=== PATIENT | male | born 1960 | race Caucasian/White ===

== ENCOUNTER → 2023-07-07 06:18 | Outpatient (REF) | payer OTHER, SELFPAY ==
[2023-07-07 07:20] LABS: % Basophils 0.6 % (0-2); % Eosinophils 2.6 % (0-6); % Immature Granulocytes 0.3 % (0-0.5); % Lymphocytes 30.2 % (20.5-51.1); % Neutrophils 59.3 % (42.2-75.2); Absolute Eosinophils 0.2 10^3/uL (0-0.7); Absolute Lymphocytes 2.2 10^3/uL (1.2-3.4); Absolute Monocytes 0.5 10^3/uL (0.1-0.6); Absolute Neutrophils 4.3 10^3/uL (1.4-6.5); Hematocrit 42.5 % (39.0-52.0); Hemoglobin 14.5 g/dL (13.0-18.0); Mean Corp Hgb Conc. 34.1 g/dL (33.0-37.0); Nucleated Red Blood Cells % 0 % (-); Platelet Count 325 10^3/uL (130-400); Red Cell Dist. Width 12.8 % (11.5-14.5); White Blood Cell Count 7.2 10^3/uL (4.8-10.8)
[2023-07-07 08:02] LABS: Blood Urea Nitrogen 22 mg/dl (9-20); Calcium 9.6 mg/dl (8.4-10.2); Carbon Dioxide 27 mmol/L (22-30); Chloride 102 mmol/L (98-107); Glucose 103 mg/dl (70-99); Potassium 4.7 mmol/L (3.5-5.1); Sodium 139 mmol/L (135-145); eGFR > 60.00
== END ==
LOC: RCS 06:18
PROVIDERS: ATTENDING PHYSICIAN Student in an Organized Health Care Education/Training Program; FAMILY PHYSICIAN Family Medicine
DX: M76.60 Achilles tendinitis, unspecified leg (principal)
CPT/HCPCS: 36415; 80048; 85025; 93005

== ENCOUNTER 2023-07-16 12:29 | Inpatient (IN) | payer OTHER, SELFPAY ==
[2023-07-14] VITALS (7 sets, daily range): BP systolic 142–178; BP diastolic 88–112; BMI 30.5; BMI 30.2
--- NOTE | 2023-07-14 15:11 | ED.GENMED ---
History of Present Illness
General
Chief Complaint: Fainting Sensation
Source: patient and family (son who is at the bedside)
Exam Limitations: none
Time Seen by Provider: 07/14/23 15:12
Nursing documentation reviewed up to this point in time: agreed with
Travel History
Have you had any contact with someone who has COVID-19?: No
Do you have any symptoms of coronavirus? Fever > 100 degrees, chills, cough, shortness of breath, sore throat, loss of taste or smell, muscle aches, or headache?: No
History of Present Illness
History of Present Illness:
The patient is a pleasant 62 yr old man who was sent directly from a surgi center due to low oxygen levels post-R achilles tendon repair under general anesthesia and intubation. According to Dr. Vel Levy, who I spoke to over the phone, the
patient intermittently dropped his pulse ox postsurgery and complained of chest tightness. The patient reports he feels completely better at this time. He denies any chest tightness or chest pain. He denies shortness of breath. He reports that
he generally feels lightheaded and nearly passes out anytime he sees needles. Patient denies any postoperative pain in his right ankle area. He denies a history of PE and DVT. He denies a history of coronary artery disease. Additionally,
postsurgically, he did cough up pink like sputum. Patient denies being on any blood thinners.
Past History
Past History
ED Past Medical History: None
ED Past Surgical History: Orthopedic and Tonsilectomy
Social History
Tobacco: Former smoker
Alcohol: Occasional
Drug: None
Personal:
Living: with family
Employment: Employed
Family History
Family History: Other
Review of Systems
Review of Systems
Allergies reviewed?: Yes
Other source history: family
All Other Systems: ROS reviewed and negative except as documented in HPI and ROS
Constitutional: Reports no symptoms
EENT: Reports no symptoms
Respiratory: Reports cough
Cardiac: Reports chest pain
ABD/GI: Reports no symptoms
: Reports no symptoms
Musculoskeletal: Reports no symptoms
Skin: Reports no symptoms
Neurological: Reports no symptoms
Endocrine: Reports no symptoms
Hematologic/Lymphatic: Reports no symptoms
Psychiatric: Reports no symptoms
Phy Exam
Physical Exam
Physical Exam:
Physical Exam
General: no apparent distress, not acutely ill. Patient appears well and comfortable. Is smiling and conversational
Neck: supple. no meningeal signs. normal posterior pharynx
Heart: s1/s2 regular rate and rhythm, no murmur. equal radial pulses. When patient takes a deep breath, and there is no reproducible chest pain
Lungs: no acute respiratory distress. clear bilaterally
Abdomen: normal bowel sounds. not tender. no CVAT
Neuro: alert and oriented. no focal neurological deficits
Skin: no rash
Psychiatric: well kept. interactive and cooperative
Extremities: Patient has posterior right short leg splint on right lower extremity. Patient has good sensation in bilateral feet.
Course
Orders/Labs/Results
Orders:
Orders
07/14/23 14:51
Electrocardiogram (*1) Urgent
Reason for Study: Chest Pain
07/14/23 14:52
EKG- Treatment ONCE
07/14/23 Dinner
Regular
At Your Request: Full Participation
Does patient need a safe tray?: No
07/14/23 15:17
Complete Blood Count/With Diff Urgent
Comprehensive Metabolic Panel Urgent
Troponin I Urgent
07/14/23 15:27
CR Chest - 2 Views Urgent
Comment:
Reason For Exam: cough
07/14/23 17:47
CT Chest Pe Study Urgent
Comment:
Reason For Exam: CP
07/14/23 18:07
Admit/Transfer Patient As Directed
Co-Sign Provider:
Level of Care: Observation services
Assign to:: Telemetry
Physician / Group: rodolfo
Diagnosis: post op hypoxia, chest pain
Reason for Telemetry: Arrhythmia
Date to Stop Telemetry: 07/17/23
Time to Stop Telemetry: 11:00
07/14/23 18:08
Code Status As Directed
Resuscitation Status: Full Code
07/14/23 19:31
Acetaminophen [Tylenol] 650 mg PO Q4HPRN PRN
Ibuprofen [Motrin] 400 mg PO Q6HPRN PRN
Tramadol HCl [Ultram] 50 mg PO Q6HPRN PRN
07/14/23 19:31
Activity As Directed
Activity Level: As Tolerated
Vital Signs As Directed
Frequency: Per unit guidelines
DX Deep Vein Thrombosis Video Routine
07/14/23 20:00
Heparin 5,000 units SC Q12
07/14/23 21:17
Troponin I Q6H
07/15/23 01:31
Troponin I Q6H
07/15/23 06:00
Complete Blood Count/With Diff IN AM
Comprehensive Metabolic Panel IN AM
07/15/23 07:31
Troponin I Q6H
07/17/23 11:00
DC Protocol for Telemetry ONCE
Abnormal Lab Results
07/14/23
15:17
WBC 14.4 H 10^3/uL
(4.8-10.8)
Abs Immat Gran (auto) 0.1 H 10^3/uL
(0-0.05)
Absolute Neuts (auto) 13.6 H 10^3/uL
(1.4-6.5)
Absolute Lymphs (auto) 0.6 L 10^3/uL
(1.2-3.4)
Neutrophils % 94.2 H %
(42.2-75.2)
Lymphocytes % 4.0 L %
(20.5-51.1)
Monocytes % 1.2 L %
(1.7-9.3)
BUN 22 H mg/dl
(9-20)
Glucose 134 H mg/dl
(70-99)
Troponin I 0.043 H* ng/ml
07/14/23 15:17
07/14/23 15:17
Vital Signs
Initial and Last Documented VS:
Initial Vital Signs
Pulse BP
94 159/94
07/14/23 14:51 07/14/23 14:51
Last Documented Vital Signs
Temp Pulse Resp BP Pulse Ox
97.9 F 98 20 178/112 94
07/14/23 20:20 07/14/23 20:20 07/14/23 20:20 07/14/23 20:20 07/14/23 20:20
MDM/Problems Addressed
Differential Diagnosis Includes:
Acute coronary syndrome, musculoskeletal chest pain due to post intubation, gastritis, anxiety, PE, pleural effusion
MDM/Problems Addressed:
Patient presents with acute chest tightness and history of low pulse ox prior to arrival
Acute Exacerbation and/or Progression of Chronic Illness:
Patient is acutely hypertensive, however, patient reports that when he is under medical care and gets anxious, his blood pressure rises.
*Radiology
Radiology exam reviewed: preliminary read by ED provider and radiology read reviewed (Chest x-ray read by me. No acute disease)
*Pulse Oximetry
Patient hypoxic: no
*EKG
Interpreted by ED Provider?: Yes
Interpretation: abnormal
Comparison EKG: no changes
Rate: normal
Rhythm: sinus
[place]: left axis deviation
Interval: normal interval
QRS Pattern: normal QRS
Ischemia: non-specific ST changes
*Toy Electric Train Repairer Interpretation
Rate: normal
Interpretation: normal
Rhythm: sinus
*Critical Care Note
Total Time (30-74mins, 75-104mins- exclusive of procedures): Not Applicable
Data Reviewed
Review of Other/Old Records Reveals: Radiology Studies (Chest x-ray reviewed from April 2020 which showed no acute disease)
Source: patient and other (Dr. Vel Levy)
Patient Management
Social determinants of health affecting care: Living situation and Strong social support
Discussion with other providers: Other (Dr. Vel Levy you described intermittent low pulse ox postsurgery)
ED Attending Note
-
Portions of this chart may have been created with voice recognition software.� Occasional wrong word or��sound alike� substitutions may have occurred due to the inherent limitations of voice recognition software.
Discharge Plan
Departure
Patient Disposition: Admit
Date of Disposition: 07/14/23
Time of Disposition: 17:25
Admit to: Telemetry
Presentation/result/management discussed w/ accepting MD/DO: Hospitalist
Patient with high blood pressure during this ER visit?: Yes
Condition: Good
Discharge Problem:
Chest pain in adult, Elevated troponin
Interventions
Interventions:
*Risk Screen - Suicide Last Done: 07/14/23 14:53
*General Assessment Last Done: 07/14/23 14:53
*Neglect/Abuse Screening Last Done: 07/14/23 14:53
ED- Fall Risk Assessment Last Done: 07/14/23 19:45
*ED COVID-19 Vaccine History Last Done: 07/14/23 19:12
*Nursing Disposition Last Done: 07/14/23 19:45
ED- Cardiac Assessment Last Done: 07/14/23 15:04
ED- Neurological Assessment Last Done: 07/14/23 15:04
Discharge Date and Time
Discharge Date/Time: 07/14/23 19:45
[2023-07-14 15:27] LABS: % Basophils 0.2 % (0-2); % Immature Granulocytes 0.4 % (0-0.5); % Monocytes 1.2 % (1.7-9.3); % Neutrophils 94.2 % (42.2-75.2); Absolute Immature Granulocytes 0.1 10^3/uL (0-0.05); Absolute Lymphocytes 0.6 10^3/uL (1.2-3.4); Absolute Monocytes 0.2 10^3/uL (0.1-0.6); Absolute Neutrophils 13.6 10^3/uL (1.4-6.5); Hematocrit 43.3 % (39.0-52.0); Hemoglobin 14.7 g/dL (13.0-18.0); Mean Corp Hgb Conc. 33.9 g/dL (33.0-37.0); Mean Corpuscular Volume 85.4 fL (80.0-94.0); Nucleated Red Blood Cells % 0 % (-); Platelet Count 275 10^3/uL (130-400); Red Blood Cell Count 5.07 10^6/uL (4.70-6.10); Red Cell Dist. Width 13.1 % (11.5-14.5); White Blood Cell Count 14.4 10^3/uL (4.8-10.8)
[2023-07-14 16:03] LABS: ALT (SGPT) 19 U/L (0-50); AST (SGOT) 27 U/L (17-59); Albumin 4.2 g/dl (3.5-5.0); Alkaline Phosphatase 72 U/L (38-126); Blood Urea Nitrogen 22 mg/dl (9-20); Calcium 8.8 mg/dl (8.4-10.2); Carbon Dioxide 25 mmol/L (22-30); Chloride 106 mmol/L (98-107); Estimated Creatinine Clearance 102 ml/min; Glucose 134 mg/dl (70-99); Potassium 4.1 mmol/L (3.5-5.1); Sodium 141 mmol/L (135-145); Total Bilirubin 0.6 mg/dl (0.2-1.3); Total Protein 7.1 g/dl (6.3-8.2); eGFR > 60.00
[2023-07-14 17:03] LABS: Troponin I 0.043 ng/ml
--- NOTE | 2023-07-14 17:40 | PHANOTE ---
07/14/2023, med rec tech, pt. was prescribed Aspirin 325 mg daily, Ibuprofen 600 mg Q6HPRN, Gabapentin 300 mg TID for 5 days then HSPRN for pain, and Tramadol 50 mg Q6HPRN on 07/11/2023 to be taken after his surgery but he has not started taking any
of these meds. yet.
--- NOTE | 2023-07-14 18:10 | HPS.HSE ---
Family Physician
-
Family Physician: Tee Lipscomb
Chief Complaint
-
chest pain, shortness of breath
History of Present Illness
62-year-old male past medical history of who was sent in directly from surgical center due to low oxygen levels after right Achilles tendon repair under general anesthesia and intubation. According to Dr. Vel Levy patient intermittently
dropped his pulse ox after the surgery and complained of chest tightness. He did cough up a little bit of pink like sputum after surgery. Patient feels completely fine at this time. He denies any chest tightness or chest pain. Denies shortness
of breath. He generally feels lightheaded and short of breath anytime she sees needles. He denies any right ankle pain. Denies any history of pulm embolism or DVT. He denies any history of coronary disease.
Father had heart attacks.
Patient denies any smoking or alcohol use.
Medical History
Past Medical History
Past Medical History: Reports None
Past Surgical History: Reports Other (Achilles tendon repair )
Social History
Tobacco: Non-smoker
Alcohol: None
Drug: None
Family History
Family History: Not pertinent
Allergies / Home Medications
Allergies reflects when Allergies were last updated in [facility].
Home Medications with original date entered in [facility]
Allergy/Medication List:
Allergies
Allergy/AdvReac Type Severity Reaction Status Date / Time
No Known Allergies Allergy Verified 07/14/23 15:01
Home Medications
No Meds [No Current Medications] 05/08/20
Review of Systems
-
History Source: Patient
A 12 point ROS was completed and negative except as noted: Yes
Constitutional: Reports No Symptoms
EENT: Reports No Symptoms
Respiratory: Reports See HPI
Cardiac: Reports See HPI
Abdomen/GI: Reports No Symptoms
: Reports No Symptoms
Musculoskeletal: Reports No Symptoms
Skin: Reports No Symptoms
Neurological: Reports No Symptoms
Endocrine: Reports No Symptoms
Hematologic/Lymphatic: Reports No Symptoms
Psych: Reports No Symptoms
Physical Exam
Vital Signs
Vital Signs
Temp Pulse Resp BP Pulse Ox
97.6 F 102 15 145/89 99
07/14/23 14:53 07/14/23 18:00 07/14/23 18:00 07/14/23 18:00 07/14/23 14:53
Physical Exam
General: Well Developed, Well Nourished and No Apparent Distress
HEENT: NormoCephalic, Moist mucous membranes and Atraumatic
Respiratory: Clear
Cardiac: S1/S2 and Regular Rhythm; No Murmur or Rub
GI: Soft, Non Tender, Non Distended and Normal Bowel Sounds; No Organomegaly
Rectal: Deferred by Provider
Musculoskeletal: No Clubbing, No Cyanosis and No Edema
Skin: No Rash
Neuro: Nonfocal/grossly intact
Laboratory Results
-
07/14/23 15:17
07/14/23 15:17
Laboratory Results
Total Bilirubin 0.6 mg/dl (0.2-1.3) 07/14/23 15:17
AST 27 U/L (17-59) 07/14/23 15:17
ALT 19 U/L (0-50) 07/14/23 15:17
Alkaline Phosphatase 72 U/L (38-126) 07/14/23 15:17
Troponin I 0.043 ng/ml H* 07/14/23 15:17
Data Reviewed
-
Lab Data: Labs Reviewed by me
Old Records: Reviewed
Impression/Plan
-
IMPRESSION:
PLAN:
# Transient postsurgical hypoxia likely due to anesthesia/atelectasis
-No longer hypoxic
-Chest x-ray unremarkable
-CT PE pending
# Nonischemic myocardial injury secondary to surgery/anesthesia
-No symptoms currently
-Slight troponin elevation of 0.043
-EKG shows normal sinus rhythm without ischemic changes
-Trend troponins until peak
-CT PE pending
-May benefit from outpatient stress test
# Right Achilles tendon repair status post surgery
-Continue aspirin, tramadol, ibuprofen, gabapentin for pain as prescribed by Dr. Levy
Full code
DVT prophylaxis�heparin
Regular diet
--- NOTE | 2023-07-14 20:00 | PTCARENOTE ---
Pt arrived from ED via stretcher and ambulated to bed w/ steerable knee scooter. Pt is AAOx3, VSS, w/o complaints of pain, R foot fiberglass cast intact. Pt is oriented to room resting comfortably w/ call forrester within reach.
[2023-07-14] MEDS: HEPARIN 5000 UNITS SC (23:00)
[2023-07-14] MEDS: TYLENOL 650 MG PO (23:01)
[2023-07-15] VITALS (7 sets, daily range): BP systolic 102–152; BP diastolic 61–98
[2023-07-15 07:34] LABS: % Basophils 0.2 % (0-2); % Eosinophils 0.2 % (0-6); % Immature Granulocytes 0.4 % (0-0.5); % Lymphocytes 15.1 % (20.5-51.1); % Monocytes 7.6 % (1.7-9.3); % Neutrophils 76.5 % (42.2-75.2); Absolute Immature Granulocytes 0.1 10^3/uL (0-0.05); Absolute Lymphocytes 1.9 10^3/uL (1.2-3.4); Absolute Monocytes 0.9 10^3/uL (0.1-0.6); Absolute Neutrophils 9.5 10^3/uL (1.4-6.5); Hematocrit 40.7 % (39.0-52.0); Hemoglobin 14.2 g/dL (13.0-18.0); Mean Corp Hgb Conc. 34.9 g/dL (33.0-37.0); Mean Corpuscular Hgb 28.8 pg (27.0-31.0); Mean Corpuscular Volume 82.6 fL (80.0-94.0); Mean Platelet Volume 9.8 fL (7.4-10.4); Nucleated Red Blood Cells % 0 % (-); Platelet Count 283 10^3/uL (130-400); Red Blood Cell Count 4.93 10^6/uL (4.70-6.10); Red Cell Dist. Width 13.2 % (11.5-14.5); White Blood Cell Count 12.4 10^3/uL (4.8-10.8)
[2023-07-15 08:04] LABS: Troponin I 0.701 ng/ml
[2023-07-15 08:06] LABS: ALT (SGPT) 17 U/L (0-50); AST (SGOT) 31 U/L (17-59); Albumin 3.9 g/dl (3.5-5.0); Alkaline Phosphatase 67 U/L (38-126); Blood Urea Nitrogen 22 mg/dl (9-20); Carbon Dioxide 23 mmol/L (22-30); Chloride 107 mmol/L (98-107); Estimated Creatinine Clearance 91 ml/min; Glucose 98 mg/dl (70-99); Potassium 4.2 mmol/L (3.5-5.1); Sodium 136 mmol/L (135-145); Total Bilirubin 1.1 mg/dl (0.2-1.3); Total Protein 6.7 g/dl (6.3-8.2); eGFR > 60.00
[2023-07-15 08:51] LABS: Hepatitis C Antibody Negative (Negative)
[2023-07-15] MEDS: NEURONTIN 300 MG PO ×3 (09:09→21:05)
[2023-07-15] MEDS: ASPIRIN 325 MG PO (09:09)
[2023-07-15] MEDS: HEPARIN 5000 UNITS SC ×2 (09:09→20:48)
--- NOTE | 2023-07-15 09:52 | CON.CAR ---
Addendum entered and electronically signed by Lennox Moffett MD 07/15/23 17:23:
I saw and examined the patient.
The Interactive Media Marketing Strategist's note was reviewed and I agree with the note.
Comment:
GEN: No distress, awake, Ox3
HEENT: supple, anicteric, mmm
LUNGS: CTA, no wheezes/rales
CV: Reg, S1/S2, 1/6 syst LSB, no gallop
ABD: soft, BS+, NT/ND
EXT: No edema
NEURO: Gross non-focal
SKIN: No rash
Plan:
He presents with a non-STEMI status post right Achilles repair surgery done July 14, 2023. Peak troponin 0.7. CT scan with no pulmonary embolism.
Plan is to proceed with cardiac cath in a.m. EKG with nonspecific ST abnormalities. He had significant chest tightness postoperatively.
Continue aspirin. Per orthopedics okay to use dual antiplatelet therapy during catheterization. Add Toprol.
Check lipids and start statin. Likely will add lisinopril as well. Follow blood pressure.
Check echocardiogram today.
Original Note:
Consultation
Consultation Request
Date/Time Consultation Performed: 07/15/23
Requesting Provider: Dr. Burch
Performing Provider: Altagracia Ramirez PA-C for Dr. Moffett
Reason for Consultation: hypoxia, CP
Medical History
-
Chief Complaint: hypoxia
History of Present Illness:
Patient is a 62-year-old male without significant past medical history who underwent right Achilles repair surgery under general anesthesia at outpatient orthopedic surgical center 07/14/2023. Postoperatively patient was noted to be hypoxic, and
complained of some left-sided chest tightness which he states lasted approximately 5 to 10 minutes and was transferred to the ER for evaluation and admission. Also reports he coughed up some pink sputum while in recovery at surgical center. Upon
arrival to ER, he underwent chest CT which was negative for PE or dissection. Initial troponin 0.043 resulting in cardiology consultation. No present chest discomfort. Denies history of cardiac issues, CP or SOB as OP.
PMH:
remote former smoker
FH of CAD in father, multiple MIs
Past Medical History
Past Medical History: Other (in HPI)
Social History
Tobacco: Former Smoker (remote)
Alcohol: None
Personal:
Living: With Family
Employment: Employed
Family History
Family History: CAD (in father)
Allergies / Home Medications
Allergy/AdvReac Type Severity Reaction Status Date / Time
No Known Allergies Allergy Verified 07/14/23 15:01
Medication Instructions Recorded Confirmed Type
aspirin 325 mg tablet 325 mg PO DAILY 07/14/23 07/14/23 History
gabapentin 300 mg tablet 300 mg PO TID 07/14/23 07/14/23 History
ibuprofen 600 mg tablet 600 mg PO Q6H PRN pain 07/14/23 07/14/23 History
tramadol 50 mg tablet 50 mg PO Q6H PRN pain 07/14/23 07/14/23 History
Review of Systems
-
History Source: Patient
All other systems: Negative unless noted
Physical Exam
Vital Signs
Temp Pulse Resp BP Pulse Ox
98.1 F 89 16 151/90 98
07/15/23 07:55 07/15/23 07:55 07/15/23 07:55 07/15/23 07:55 07/15/23 07:55
Lab Results
07/15/23 07:24
07/15/23 07:24
Troponin I 0.701 ng/ml H* 07/15/23 07:24
Physical Exam
General: No Apparent Distress and Comfortable
HEENT: Normocephalic, Anicteric and Moist Mucous Membranes
Respiratory: Clear and Non Labored Respirations
Cardiac: S1/S2 and Regular Rhythm
GI: Soft, Non Tender, Non Distended and Normal Bowel Sounds
Musculoskeletal: No Clubbing, No Cyanosis and No Edema
Skin: Warm, Dry and Other (RLE dressing c/d/i)
Neuro: AO x 3
Impression / Plan
-
Primary Assurance Senior Manager Insurance: none prior to admission
Assessment:
Presentation with hypoxia post op
Chest tightness
Elevated troponin, concern for NSTEMI
Leukocytosis
Possible RUL PNA by chest CT
R Achilles repair surgery 07/14/23
remote former smoker
FH of CAD in father, multiple MIs
ECHO 07/15/23: pending
Plan:
-Patient presented with post op hypoxia and brief chest tightness after R achilles repair surgery 07/14/23.
-CXR without evidence of acute cardiopulm disease. chest CT negative for PE or dissection. does show evidence of possible RUL interstitial PNA, ? aspiration. mgmt per primary service. O2 stable on RA.
-he has ruled in for NSTEMI with trop thus far of 0.7. trend to peak. no recurrence of chest discomfort overnight
-EKG SR without acute ST abnormalities
-continue asa
-check echo
-check CVE in AM. add statin
-toprol 25mg daily added
-tentative plan for cath in AM. procedure described to patient at bedside in detail 07/14 and he is agreeable to proceed
-d/w nursing. d/w orthopedic physician and updated
Data Reviewed
-
EKG: Tracing Personally Visualized and interpreted
CT Scan: Report Reviewed by me
Labs: Labs Reviewed by me
Old Records: Reviewed
[2023-07-15] MEDS: TYLENOL 650 MG PO (12:00)
[2023-07-15] MEDS: TOPROL XL 25 MG PO (12:01)
[2023-07-15 12:35] LABS: Troponin I 0.526 ng/ml
--- NOTE | 2023-07-15 13:00 | W.PN.HOSP.TC ---
Today's Communication/Plan
-
Cath in am
ECHO
IS
If develops fever add Antibiotics
Assessment / Plan
Assessment / Plan
62-year-old male admitted with shortness of breath after surgical procedure in the surgical suite
Denies any chest pain now
No shortness of breath now
Cardiovascular system S1-S2 appreciated
Chest clear to auscultation
Abdomen soft and nontender
Right leg in immobilizer
# Transient post operative hypoxia
Recent unclear at this point
CT PE study with no PE
Changes consistent with atelectasis/possible aspiration
No fever
Discussed with the patient-he wants to hold off on any antibiotics I agree with that
If he develops cough, fever, shortness of breath-consider short course of antibiotics. Hold off for now
Incentive spirometry ordered
# Mild leukocytosis-likely reactive-trending down
# Elevated troponin
Non-STEMI
Already on high-dose of aspirin-continue. Lipitor also added by cardiology
Cardiac catheterization tomorrow
Check ECHO
# [id number]-[id number] started-continue
# Right Achilles tendon repair
On immobilizer
On aspirin 325 mg per orthopedics, tramadol, ibuprofen, gabapentin
Add Pepcid for GI prophylaxis while on high-dose of aspirin and ibuprofen
# Ex-smoker
# Obesity per BMI
# Full code
# DVT prophylaxis-aspirin and SIRIA here
Anticipated Discharge: Within 24 hours
Subjective/Interval History
-
Date of Service: July 15, 2023
Objective Data
-
Labs:
Laboratory Results
07/15/23
07:24
WBC 12.4 H
Hgb 14.2
Hct 40.7
Plt Count 283
Sodium 136
Potassium 4.2
Chloride 107
Carbon Dioxide 23
BUN 22 H
Creatinine 1.0
Glucose 98
Calcium 9.0
Total Bilirubin 1.1
AST 31
ALT 17
Alkaline Phosphatase 67
Vital Signs:
Vital Signs
Temp Pulse Resp BP Pulse Ox
99.0 F 97 16 152/92 96
07/15/23 11:55 07/15/23 12:01 07/15/23 11:55 07/15/23 12:01 07/15/23 11:55
I&O
07/14/23 07/15/23 07/16/23
06:59 06:59 06:59
Intake Total 480 / 480
Output Total 775 / 775
Balance -295 / -295
[2023-07-15] MEDS: PEPCID 20 MG PO ×2 (13:22→20:51)
[2023-07-15] MEDS: LIPITOR 40 MG PO (17:10)
[2023-07-15] MEDS: ULTRAM 50 MG PO (18:02)
[2023-07-15] MEDS: MOTRIN 400 MG PO (20:51)
[2023-07-16] VITALS (14 sets, daily range): BP systolic 105–162; BP diastolic 55–107
[2023-07-16] MEDS: ULTRAM 50 MG PO ×2 (03:25→18:29)
--- NOTE | 2023-07-16 03:32 | DOWNTIME ---
There was a Fashion Project Client Seismograph Operator Helper Downtime on 07/16/2023 from 0100 to 07/16/2023 at 0322. Downtime documentation of patient's care, including medication administrations, has been reconciled in the electronic record per guidelines. Refer to the
patient's paper chart under the miscellaneous tab to see printed paper medication records and downtime forms.
[2023-07-16 06:55] LABS: HDL Cholesterol 40 mg/dl; LDL Cholesterol, Calculated 115 mg/dl; Total Cholesterol 190 mg/dl (50-199); Triglyceride 175 mg/dl (10-149); Very Low Density Lipoprotein 35 mg/dl (0-30)
[2023-07-16] MEDS: PEPCID 20 MG PO ×2 (08:19→20:23)
[2023-07-16] MEDS: NEURONTIN 300 MG PO ×3 (08:19→22:31)
[2023-07-16] MEDS: ASPIRIN 325 MG PO (08:19)
[2023-07-16] MEDS: TOPROL XL 25 MG PO ×2 (08:20→20:23)
[2023-07-16] MEDS: HEPARIN 5000 UNITS SC ×2 (08:20→20:22)
--- NOTE | 2023-07-16 10:36 | CM ---
CM following re: d/c planning
Chart reviewed
CM met with patient at bedside; IA completed
Pt is here as observation, obs letter reviewed and copy provided
Pt states he, his spouse and their two teenage boys reside in a [place] with 7 or 8 KIT
SCRIPT EDITOR patient reports independence at baseline
Pt has no past hx of VN/SNF and the only DME owned for use as needed is a scooter & pair of crutches
Pt was seen by PT and no skilled therapy needs identified
CM will continue to follow patient progress and assist with any needs at d/c as indicated
Pt confirms prescription coverage and rx's are filled at [facility] on [address]
Pt PCP-Dr. Tee Lipscomb
PLAN; d/c home no needs anticipated
--- NOTE | 2023-07-16 11:55 | PTCARENOTE ---
Pt has a wallet that he is sending home with his son, he also said he will have him bring his glasses in. He currently has a scooter for his right leg.
--- NOTE | 2023-07-16 11:59 | PTCARENOTE ---
Rec'd pt from foundry laborer coreroom AAOx3 w/no c/o CP or SOB. Pt w/R radial band in place w/no signs or symptoms of bleeding or hematoma. This RN discussed plan of care & activity restrictions while R band is in place. Pt verbalized his understanding. Pt's VS
stable. SpO2 level on R hand is 96% on RA. Pt w/call forrester within reach & no addtl needs at this time.
--- NOTE | 2023-07-16 12:06 | CONSULT.CT ---
Consultation
-
Date/Time Consultation Requested: 07/16/23 1130
Date/Time Consultation Performed: 07/16/23 1200
Requesting Provider: Juanito
Performing Provider: Cathy Callaway MD
Reason for Consultation: CABG Eval
Patient History
Physicians
Family Physician: Tee Lipscomb
Outpatient Treating Engineer Helper: None
History of Present Illness
62 y/o male with PMHx of HTN recent had a achilles repair surgery in an [facility]. Post-operatively, patient was noted to be hypoxic and left sided chest tightness. He was transferred tot [facility] for evaluation. He was
ruled in for a NSTEMI and taken to the caht lab today. The left heart cath revealed MVD, therefore, CT surgery was consulted for surgical evaluation.
Prior to this event patient was very active. He states that he would walk 20k steps daily and would go on long walks. However, he did state that with long walks after eating he would become short of breathe relieved by rest. He has a strong family
history for CAD, his mother at age 64 d/t [facility] and father and brother had open heart surgery.
Past Medical History
Past Medical History: HTN and SOB
Past Surgical History
Past Surgical History: Other
Achillies tendon repair on 07/13
Dental History
bridges
Family History
Mother: at Age (64) and Cause of ([facility])
Father: at Age (83)
Family Medical History: CAD
Social History
Alcohol: Occasional
Drug: None
Tobacco: Former Smoker (Quit in 1987 (max 1PPD))
Personal:
Living: With Family
Employment: Employed
Allergies
Allergy/AdvReac Type Severity Reaction Status Date / Time
No Known Allergies Allergy Verified 07/14/23 15:01
Home Medications
�Medication �Instructions �Recorded �Confirmed �Type
aspirin 325 mg tablet 325 mg PO DAILY x 30 days post 07/14/23 07/15/23 History
07/14/23 surgery
ibuprofen 600 mg tablet 600 mg PO Q6H PRN pain 07/14/23 07/15/23 History
tramadol 50 mg tablet 50 mg PO Q6H PRN pain 07/14/23 07/15/23 History
gabapentin 300 mg capsule 300 mg PO TID post surgery pain 07/15/23 07/15/23 History
Review of Systems
-
History Source: Patient
General: Reports No Symptoms
HEENT: Reports No Symptoms
Respiratory: Reports SOB and HERNÁNDEZ
Cardiac: Reports No Symptoms
Abdomen/GI: Reports No Symptoms
: Reports No Symptoms
Musculoskeletal: Reports No Symptoms
Skin: Reports No Symptoms
Neurological: Reports No Symptoms
Vascular: Reports No Symptoms
Physical Exam
Vital Signs
Temp 98.1 F 07/16/23 11:42
Temp route: Oral 07/16/23 11:42
Pulse 71 07/16/23 11:30
Rhythm: Normal sinus rhythm 07/16/23 08:00
Resp Rate 20 07/16/23 11:42
Blood pressure 134/84 07/16/23 11:26
Blood pressure extremity used: Left upper arm 07/16/23 11:42
Position: Lying 07/16/23 11:42
MAP (cuff-Davina Monitor) 99 07/16/23 11:26
SaO2 94 07/16/23 11:30
Oxygen Mode of Delivery Room air 07/16/23 11:42
Can the patient verbally communicate their pain? Yes 07/16/23 11:30
Pain scale rating: Asleep 07/16/23 04:25
Actual Weight 98.174 kg 07/14/23 20:20
Body Mass Index (BMI) 30.2 07/14/23 20:20
Labs
07/15/23 07:24
07/15/23 07:24
Troponin I 0.526 ng/ml H* 07/15/23 11:53
Exam
General: Well Developed, Well Nourished and No Apparent Distress
HEENT: Normocephalic
Respiratory: Clear and Wheezes
Cardiac: S1/S2 and Regular Rhythm
GI: Soft and Non Tender
Rectal: Deferred by Provider
Skin: Warm and Dry
Neuro: AO x 3 and No Motor Deficits
Lymph: No Lymphadenopathy
Psych: Calm
Assessment / Plan
-
62 y/o male with PMHx listed above presented to [facility] after an Achilles tendon repair he was complaining about left-sided chest pain and ruled in for a non-STEMI. CT surgery was consulted for surgical evaluation.
#CAD
-Patient's case will be discussed with attending physician. Tentative surgery date Friday07/18/[address] yee
-Routine preoperative cardiothoracic surgery orders will be initiated.�
-STS risk stratification score will be calculated after preoperative testing is complete
--- NOTE | 2023-07-16 12:20 | ITS.CL.CATH ---
Tag Marker - Catheterization
Cardiac Catheterization
Procedure Report:
LEFT HEART CATHETERIZATION
Date of Procedure: July 16, 2023
Referring: Dr. Enzo Moffett
PROCEDURES:
1. Left heart catheterization with coronary and single-plane left ventriculography
INDICATION: This is a 62-year-old gentleman who presented to [facility] with a non-ST segment elevation myocardial infarction post right Achilles repair surgery done on July 14, 2023 with peak troponin of 0.7. He is now referred for
coronary angiography.
ACCESS: Right radial artery, 6 Macanese sheath
HEMODYNAMICS : (mmHg)
AO (s/d) : 140/90
LV (s/d) : 150/24
LVEDP : 30
CORONARY FINDINGS
DOMINANCE: Right
LEFT MAIN: Normal
LEFT ANTERIOR DESCENDING: The LAD arises normally from the left main and runs in the anterior interventricular groove. There is a 70% proximal LAD stenosis before the origin of the first septal and first diagonal branch. The first diagonal branch
arises from the proximal third of the LAD and has an 85% stenosis at its origin and is a medium caliber vessel. The mid LAD is a moderate caliber vessel and there is a 50-60% mid LAD stenosis. The distal vessel wraps completely around the apex.
CIRCUMFLEX: The circumflex is a medium caliber nondominant vessel. OM1 arises very proximally from the circumflex and has a 90% proximal stenosis. The mid circumflex gives rise to OM 2 and OM 3. OM 2 has an 80% ostial origin OM 3 has a long
60-70% proximal to mid stenosis. The circumflex continues in the AV groove supplying a moderate caliber posterolateral branch.
RIGHT CORONARY ARTERY: 100% occluded proximally with the distal vessel filling faintly by right to right collaterals and by well-developed xfcj-nh-zaqgv collaterals
VENTRICULOGRAPHY: Left-ventricular grafting was performed in an EISENBERG projection. The digital single-plane left ventricular ejection fraction is estimated at 50% with mild distal anterior hypokinesis
RADIATION SUMMARY: Fluoro Time (min): 2.3, Dose (mGy): 281, DAP (Gy.cm2) : 22
Closure Device: TR band
CONCLUSIONS
1. Multivessel coronary artery disease involving the proximal LAD, diagonal, first, second, and third obtuse marginal branches, and chronically occluded RCA
2. Preserved left ventricular systolic function with an estimated ejection fraction of 50%
RECOMMENDATIONS
1. Consult CT surgery to consider surgical revascularization given the diffuse nature of coronary artery disease
Copy to: Dr. Enzo Moffett
--- NOTE | 2023-07-16 14:57 | W.PN.HOSP.TC ---
Today's Communication/Plan
-
CTS eval
Assessment / Plan
Assessment / Plan
62-year-old male admitted with shortness of breath after surgical procedure in the surgical suite
Denies any chest pain now
No shortness of breath now
Cardiovascular system S1-S2 appreciated
Chest clear to auscultation
Abdomen soft and nontender
Right leg in immobilizer
#Non-STEMI
Already on aspirin-continue. Lipitor also added by cardiology
Cardiac catheterization -Multivessel coronary artery disease involving the proximal LAD, diagonal, first, second, and third obtuse marginal branches, and chronically occluded RCA,EF 50%
CTS consulted
ECHO-Normal left ventricular size and preserved global EF. Basal inferolateral hypokinesis suggested in some views. EF 55-60%,Trace Mr
CUS ordered
# Transient post operative hypoxia
Recent unclear at this point
CT PE study with no PE
Changes consistent with atelectasis/possible aspiration
No fever
Discussed with the patient-he wants to hold off on any antibiotics I agree with that
If he develops cough, fever, shortness of breath-consider short course of antibiotics. Hold off for now
Incentive spirometry ordered
# Mild leukocytosis-likely reactive-trending down
# Pkgxcerfzmmq-wgnc-laqsdob started-continue
# Right Achilles tendon repair
On immobilizer
On aspirin 325 mg per orthopedics, tramadol, ibuprofen, gabapentin
Add Pepcid for GI prophylaxis while on high-dose of aspirin and ibuprofen
# Ex-smoker
# Obesity per BMI
# Full code
# DVT prophylaxis-aspirin and SIRIA here
D/W Cardiology
Anticipated Discharge: > 48 hours
Subjective/Interval History
-
Date of Service: July 16, 2023
Objective Data
-
Vital Signs:
Vital Signs
Temp Pulse Resp BP Pulse Ox
98.1 F 72 20 118/71 94
07/16/23 11:42 07/16/23 14:45 07/16/23 11:42 07/16/23 14:00 07/16/23 11:30
I&O
07/15/23 07/16/23 07/17/23
06:59 06:59 06:59
Intake Total 480 / 480 720 / 720
Output Total 775 / 775 925 / 925
Balance -295 / -295 -205 / -205
--- NOTE | 2023-07-16 16:05 | W.PN.UPDATE ---
Update Note
Progress Note Update
Procedure Type:�Isolated CABG
PERIOPERATIVE OUTCOME ESTIMATE %
Operative Mortality 0.661%
Morbidity & Mortality 3.82%
Stroke 0.702%
Renal Failure 0.444%
Reoperation 1.68%
Prolonged Ventilation 1.93%
Deep Sternal Wound Infection 0.133%
Long Hospital Stay (>14 days) 1.74%
Short Hospital Stay (<6 days)* 68.8%
Clinical Summary
Planned Surgery: Isolated CABG, Urgent, First cardiovascular surgery
Demographics: 62 year old, male, 98kg, 180cm, BMI: 30.2 kg/m�
Lab Values: Creatinine: 1 mg/dL, Hematocrit: 40.7%, WBC Count: 12.4 10�/�L, Platelet Count: 401767 cells/�L
Substance Abuse: Never smoker
Risk Factors / Comorbidities: Family Hx of CAD
Cardiac Status: Ejection Fraction = 55%
Coronary Artery Disease: 3 vessels diseased, Non-ST Elevation NH, NH: 1 to 7 Days
Valve Disease: Trivial/Trace MR, Trivial/Trace TR
--- NOTE | 2023-07-16 16:10 | CM ---
Teaching done with the patient on preoperative and postoperative instructions and restrictions, along with showering guidelines. Patient is agreeable to a home visit by CT Transitional RN. Patient is independent of ADLS but had R Achilles surgery
a couple days ago and is non weight bearing on his RLE, lives with his who has stage 4 cancer under going chemo, 2 teenage boys, also has 2 adult daughters who live outside the home, [address], [address], is using a knee scooter. Plan is for the
patient to return home with CT Transitional RN.
[2023-07-16] MEDS: LIPITOR 80 MG PO (16:43)
[2023-07-17] VITALS (11 sets, daily range): BP systolic 120–156; BP diastolic 72–102; PULSE 76
--- NOTE | 2023-07-17 01:39 | PTCARENOTE ---
Pt. has no complaints chest pain/discomfort or SOB this shift, VSS, NSR on the monitor. Right radial cath site dressing CDI, no hematoma, palpable radial pulse. Pt. NWB to right lower extremity, able to use scooter around room with little to no
assistance. Right leg surgical dressing intact with no visible drainage. Plan of care discussed with pt., understanding verbalized. Pt. currently sleeping.
[2023-07-17 04:49] LABS: Hematocrit 37.8 % (39.0-52.0); Hemoglobin 13.4 g/dL (13.0-18.0); Mean Corp Hgb Conc. 35.4 g/dL (33.0-37.0); Mean Corpuscular Hgb 29.6 pg (27.0-31.0); Mean Corpuscular Volume 83.4 fL (80.0-94.0); Mean Platelet Volume 10.2 fL (7.4-10.4); Platelet Count 267 10^3/uL (130-400); Red Blood Cell Count 4.53 10^6/uL (4.70-6.10); White Blood Cell Count 7.2 10^3/uL (4.8-10.8)
[2023-07-17 05:07] LABS: INR 0.99; PT 13.1 Sec (11.4-14.6)
[2023-07-17 05:08] LABS: APTT 29.2 Sec (23.4-35.0)
[2023-07-17 05:20] LABS: ALT (SGPT) 18 U/L (0-50); AST (SGOT) 27 U/L (17-59); Albumin 3.9 g/dl (3.5-5.0); Alkaline Phosphatase 68 U/L (38-126); Blood Urea Nitrogen 24 mg/dl (9-20); Calcium 8.9 mg/dl (8.4-10.2); Carbon Dioxide 25 mmol/L (22-30); Chloride 106 mmol/L (98-107); Estimated Creatinine Clearance 83 ml/min; Glucose 93 mg/dl (70-99); Potassium 4.3 mmol/L (3.5-5.1); Sodium 135 mmol/L (135-145); Total Bilirubin 0.9 mg/dl (0.2-1.3); Total Protein 6.7 g/dl (6.3-8.2); eGFR > 60.00
--- NOTE | 2023-07-17 07:46 | W.PN.CARDCBS ---
Addendum entered and electronically signed by Viv Hughes MD 07/17/23 09:19:
I saw and examined the patient.
The Sanitation Superintendent's note was reviewed and I agree with the note.
Comment: Stable overnight. Telemetry stable. No chest discomfort.
Plan for CABG tomorrow. Discussed with patient at length.
Aggressive risk factor modification.
Continue to follow.
Carotid ultrasound reviewed with plaque noted but no stenosis.
Original Note:
Today's Communication / Plan
-
for CABG in AM
continue asa, statin, toprol
Impression / Plan
-
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
Assessment:
Presentation with hypoxia post op
Chest tightness
NSTEMI, peak trop 0.7
3V CAD by cath 07/16/23
Leukocytosis
Possible RUL PNA by chest CT
R Achilles repair surgery 07/14/23
remote former smoker
FH of CAD in father, multiple MIs
ECHO 07/15/23: EF 55-60, basal inferolateral hypokinesis suggested in some views, MAC
Plan:
-Patient presented with post op hypoxia and brief chest tightness after R achilles repair surgery 07/14/23.
-he ruled in for NSTEMI with peak trop of 0.7.
-s/p cath 07/15 with 3V CAD.
-echo with results as above, preserved EF
-CT surgical eval ongoing. tentatively planned for CABG Monday 07/17
-no recurrence of chest tightness overnight
-review of tele SR
-continue asa, toprol
-LDL 115. continue statin
-prediabetes with hgbA1c 6.1%
-d/w nursing
Progress Note - Floor Cashier
Subjective
Date of Service: July 17, 2023
denies chest tightness, SOB overnight
Objective
Labs:
07/17/23 04:25
07/17/23 04:25
Labs
Hgb 13.4 g/dL (13.0-18.0) 07/17/23 04:25
Hct 37.8 % (39.0-52.0) L 07/17/23 04:25
Plt Count 267 10^3/uL (130-400) 07/17/23 04:25
PT 13.1 Sec (11.4-14.6) 07/17/23 04:25
INR 0.99 07/17/23 04:25
APTT 29.2 Sec (23.4-35.0) 07/17/23 04:25
Sodium 135 mmol/L (135-145) 07/17/23 04:25
Potassium 4.3 mmol/L (3.5-5.1) 07/17/23 04:25
BUN 24 mg/dl (9-20) H 07/17/23 04:25
Creatinine 1.1 mg/dL (0.7-1.3) 07/17/23 04:25
Glucose 93 mg/dl (70-99) 07/17/23 04:25
Troponins
07/14/23 07/15/23 07/15/23
15:17 06:00 07:24
Troponin I 0.043 H* Cancelled 0.701 H*
07/15/23
11:53
Troponin I 0.526 H*
Vital Signs and I&O:
Vital Signs
Temp Pulse Resp BP Pulse Ox
97.5 F 64 18 126/72 97
07/17/23 07:16 07/17/23 04:02 07/17/23 07:16 07/17/23 04:02 07/17/23 07:16
Vital Signs
Temp Pulse Resp BP Pulse Ox
97.5 F 64 18 126/72 97
07/17/23 07:16 07/17/23 04:02 07/17/23 07:16 07/17/23 04:02 07/17/23 07:16
Intake & Output
07/14/23 07/15/23 07/16/23 07/17/23
07:59 07:59 07:59 07:59
Intake Total 480 / 480 720 / 720 960 / 960
Output Total 775 / 775 925 / 925
Balance -295 / -295 -205 / -205 960 / 960
Physical Exam
Physical Exam
GEN: No distress, awake, alert, oriented x3
HEENT: supple, anicteric, mmm, eomi
LUNGS: CTA B/L, no wheezes/rales
CV: Reg, S1/S2, no murmur
ABD: soft, BS+, NT/ND
EXT: No cyanosis, clubbing, edema
NEURO: Gross non-focal
SKIN: Warm, pink, dry. No rash. RLE yaw wrap/dressing c/d/i
[2023-07-17 08:44] LABS: Glycohemoglobin (HgbA1c) 6.1 % (4.0-5.6)
[2023-07-17] MEDS: HEPARIN 5000 UNITS SC ×2 (09:28→20:09)
[2023-07-17] MEDS: PEPCID 20 MG PO ×2 (09:28→20:08)
[2023-07-17] MEDS: ASPIRIN 325 MG PO (09:28)
[2023-07-17] MEDS: NEURONTIN 300 MG PO ×3 (09:28→21:47)
[2023-07-17] MEDS: TOPROL XL 25 MG PO ×2 (09:28→20:08)
--- NOTE | 2023-07-17 10:21 | W.PN.HOSP.TC ---
Today's Communication/Plan
-
CABG
Assessment / Plan
Assessment / Plan
62-year-old male admitted with shortness of breath after surgical procedure in the surgical suite
Cardiovascular system S1-S2 appreciated
Chest clear to auscultation
Abdomen soft and nontender
Right leg in immobilizer, able to move toes and feel.
#Non-STEMI
Already on aspirin-continue. Lipitor also added by cardiology
Cardiac catheterization -Multivessel coronary artery disease involving the proximal LAD, diagonal, first, second, and third obtuse marginal branches, and chronically occluded RCA,EF 50%
CTS consulted, CABG 07/18/23
ECHO-Normal left ventricular size and preserved global EF. Basal inferolateral hypokinesis suggested in some views. EF 55-60%,Trace Mr
CUS less than 50% stenosis
# Transient post operative hypoxia
Likely cardiac reasons
CT PE study with no PE
Changes consistent with atelectasis/possible aspiration
No fever
Discussed with the patient-he wants to hold off on any antibiotics I agree with that
If he develops cough, fever, shortness of breath-consider short course of antibiotics. Hold off for now
Incentive spirometry ordered
# Mild leukocytosis-likely reactive-trending down
# Wfcfsvshkzcd-opsf-aoaxlio started-continue
# Right Achilles tendon repair
On immobilizer
On aspirin 325 mg per orthopedics, tramadol, gabapentin
Added Pepcid for GI prophylaxis while on high-dose of aspirin and ibuprofen
# Ex-smoker
# Obesity per BMI
# Full code
# DVT prophylaxis-aspirin and SIRIA here
D/W Cardiology
Anticipated Discharge: > 48 hours
Subjective/Interval History
-
Date of Service: July 17, 2023
Objective Data
-
Labs:
Laboratory Results
07/17/23
04:25
WBC 7.2
Hgb 13.4
Hct 37.8 L
Plt Count 267
PT 13.1
INR 0.99
APTT 29.2
Sodium 135
Potassium 4.3
Chloride 106
Carbon Dioxide 25
BUN 24 H
Creatinine 1.1
Glucose 93
Calcium 8.9
Total Bilirubin 0.9
AST 27
ALT 18
Alkaline Phosphatase 68
Vital Signs:
Vital Signs
Temp Pulse Resp BP Pulse Ox
97.5 F 69 18 130/88 97
07/17/23 07:16 07/17/23 08:00 07/17/23 07:16 07/17/23 07:00 07/17/23 07:16
I&O
07/16/23 07/17/23 07/18/23
06:59 06:59 06:59
Intake Total 720 / 720 960 / 960
Output Total 925 / 925
Balance -205 / -205 960 / 960
--- NOTE | 2023-07-17 11:02 | CM ---
Chart reviewed. Patient is going for a CABG 07/17. Patient recently had R Achilles Tendon Surgery and is using a knee scooter. Patient lives with his and 2 teenage boys in a [address] [facility], [address]. Patient's has stage 4 cancer.
Patient also has 2 adult children who live outside the home. Plan is for the patient to return home with CT Transitional RN. CM to follow
--- NOTE | 2023-07-17 14:24 | W.PN.UPDATE ---
Update Note
Progress Note Update
Patient seen this AM. PT/OT was consulted. Pre-op orders placed. Patient will go for CABG tomorrow AM with Dr. Macario.
[2023-07-17] MEDS: COLACE 100 MG PO ×2 (14:57→20:09)
[2023-07-17] MEDS: SENOKOT 17.1999999999999993 MG PO (14:57)
[2023-07-17] MEDS: MIRALAX 17 GRAMS PO (14:57)
[2023-07-17] MEDS: LIPITOR 80 MG PO (17:23)
--- NOTE | 2023-07-17 20:00 | PTCARENOTE ---
report received from previous RN, walking rounds done. pt in bed, AAOx4. dressing intact to LLE. VSS. NSR on monitor, HR 60's-70's. POX 94% on room air. PIV x2 intact and patent. see worklist for full assessment, VS, and interventions. pt resting
comfortably.
--- NOTE | 2023-07-17 22:30 | PTCARENOTE ---
clip prep completed. pt washed w CHG surgical soap. pre-op teaching done.
[2023-07-18] VITALS (11 sets, daily range): BP systolic 100–128; BP diastolic 66–93
--- NOTE | 2023-07-18 04:30 | PTCARENOTE ---
pt VSS, no changes in assessment overnight. AAOx4. SR/SB 50's-60's. POX 96% on room air. pt sleeping between care.
[2023-07-18] MEDS: PROTONIX 40 MG PO (06:04)
[2023-07-18] MEDS: LOPRESSOR 25 MG PO (06:04)
[2023-07-18] MEDS: MAGNESIUM OXIDE 500 MG PO (06:04)
[2023-07-18] MEDS: BACTROBAN 2% OINTMENT 1 APPLIC NASAL ×2 (06:04→23:08)
--- NOTE | 2023-07-18 06:56 | W.CVOR.SURPR ---
CVOR Surgeon Immed Pre Op
-
I have examined this patient prior to performance of the scheduled procedure.
The patient's condition is unchanged from the time of the dictated/written History and
Physical and the patient is able to undergo the scheduled procedure.
[2023-07-18 07:29] LABS: ACT+ - POC 90 Seconds (82-134)
[2023-07-18 07:31] LABS: B.E. - POC -2.9 mmol/L; Glucose - POC 101 mg/dl (65-99); HCO3 - POC 24 mmol/L (21-29); Hematocrit - POC 41 % PCV (42-52); Hemodilution- POC Yes; Hemoglobin Calculated - POC 13.8; Ionized Calcium - POC 1.19 mmol/L (1.12-1.27); O2 Saturation %Calculated-POC 99.9 5 (92-96); PCO2 - POC 51 mmHg (35-45); PO2 - POC 293 mmHg (80-100); Potassium - POC 3.9 mmol/L (3.6-5.0); Sodium - POC 143 mmol/L (135-145); pH - POC 7.29 (7.35-7.45)
[2023-07-18 07:55] LABS: Urine Albumin Negative (Neg - Trace); Urine Bilirubin Negative (Negative); Urine Character Clear (Clear); Urine Color Straw; Urine Glucose Negative (Negative); Urine Ketone Negative (Negative); Urine Leukocyte Negative (Negative); Urine Nitrite Negative (Negative); Urine Occult Blood 3+ (Negative); Urine Urobilinogen Negative (Neg - 1+)
[2023-07-18 08:04] LABS: Urine Bacteria Few (Negative); Urine Squamous Cell 0-2 /LPF (Few); Urine White Cell 0-2 /HPF (0-5)
[2023-07-18 08:05] LABS: Urine Red Blood Cell 21-25 /HPF (0-2)
--- NOTE | 2023-07-18 08:09 | W.PN.UPDATE ---
Update Note
Progress Note Update
Patient has been transferred to CTS service. Will sign off. Call us back if needed.
--- NOTE | 2023-07-18 08:14 | CM ---
Reviewed chart. Mr. Meyer is in the operating room today. Prior to admission he resides with his spouse and two sons in a three story home with eight steps to enter. Prior to admission he was using a knee scooter for ambulation and
independent with adls. Spouse has her own current health issues. He has a knee scooter and crutches at home. Will need to see his functional level post surgery to see if he will have any skilled care needs. Medical work-up in progress. The
discharge plan is undetermined at this time.
[2023-07-18 09:30] LABS: ACT+ - POC 492 Seconds (82-134)
[2023-07-18 10:36] LABS: B.E. - POC -1.2 mmol/L; Glucose - POC 108 mg/dl (65-99); HCO3 - POC 24 mmol/L (21-29); Hematocrit - POC 38 % PCV (42-52); Hemodilution- POC Yes; Hemoglobin Calculated - POC 12.9; O2 Saturation %Calculated-POC 99.7 5 (92-96); PCO2 - POC 41 mmHg (35-45); PO2 - POC 212 mmHg (80-100); Potassium - POC 5.5 mmol/L (3.6-5.0); Sodium - POC 138 mmol/L (135-145); pH - POC 7.38 (7.35-7.45)
[2023-07-18 10:39] LABS: ACT+ - POC 548 Seconds (82-134)
[2023-07-18 11:01] LABS: B.E. - POC -1.6 mmol/L; Glucose - POC 117 mg/dl (65-99); HCO3 - POC 23 mmol/L (21-29); Hematocrit - POC 36 % PCV (42-52); Hemodilution- POC Yes; Hemoglobin Calculated - POC 12.1; Ionized Calcium - POC 1.02 mmol/L (1.12-1.27); O2 Saturation %Calculated-POC 99.7 5 (92-96); PCO2 - POC 38 mmHg (35-45); PO2 - POC 196 mmHg (80-100); Potassium - POC 5.7 mmol/L (3.6-5.0); Sodium - POC 135 mmol/L (135-145); pH - POC 7.39 (7.35-7.45)
[2023-07-18 11:06] LABS: ACT+ - POC 548 Seconds (82-134)
[2023-07-18 11:38] LABS: B.E. - POC -1.9 mmol/L; Glucose - POC 140 mg/dl (65-99); HCO3 - POC 23 mmol/L (21-29); Hematocrit - POC 37 % PCV (42-52); Hemodilution- POC Yes; Hemoglobin Calculated - POC 12.6; Ionized Calcium - POC 1.03 mmol/L (1.12-1.27); O2 Saturation %Calculated-POC 99.7 5 (92-96); PCO2 - POC 37 mmHg (35-45); PO2 - POC 191 mmHg (80-100); Potassium - POC 6.2 mmol/L (3.6-5.0); Sodium - POC 137 mmol/L (135-145)
[2023-07-18 11:41] LABS: ACT+ - POC 482 Seconds (82-134)
[2023-07-18 12:09] LABS: Glucose - POC 103 mg/dl (65-99); HCO3 - POC 21 mmol/L (21-29); Hematocrit - POC 37 % PCV (42-52); Hemodilution- POC Yes; Hemoglobin Calculated - POC 12.6; Ionized Calcium - POC 1.06 mmol/L (1.12-1.27); O2 Saturation %Calculated-POC 99.8 5 (92-96); PCO2 - POC 41 mmHg (35-45); PO2 - POC 230 mmHg (80-100); Sodium - POC 141 mmol/L (135-145); pH - POC 7.32 (7.35-7.45)
[2023-07-18 12:10] LABS: ACT+ - POC 465 Seconds (82-134)
[2023-07-18 12:51] LABS: ACT+ - POC 107 Seconds (82-134)
[2023-07-18 12:52] LABS: B.E. - POC -3.4 mmol/L; Glucose - POC 83 mg/dl (65-99); HCO3 - POC 23 mmol/L (21-29); Hematocrit - POC 36 % PCV (42-52); Hemodilution- POC Yes; Hemoglobin Calculated - POC 12.2; Ionized Calcium - POC 1.31 mmol/L (1.12-1.27); O2 Saturation %Calculated-POC 98.4 5 (92-96); PCO2 - POC 47 mmHg (35-45); PO2 - POC 124 mmHg (80-100); Potassium - POC 4.5 mmol/L (3.6-5.0); Sodium - POC 143 mmol/L (135-145)
[2023-07-18 13:25] LABS: Glucose - POC 74 mg/dl (65-99); HCO3 - POC 21 mmol/L (21-29); Hematocrit - POC 36 % PCV (42-52); Hemodilution- POC Yes; Hemoglobin Calculated - POC 12.3; Ionized Calcium - POC 1.17 mmol/L (1.12-1.27); O2 Saturation %Calculated-POC 99.8 5 (92-96); PCO2 - POC 40 mmHg (35-45); PO2 - POC 248 mmHg (80-100); Potassium - POC 3.9 mmol/L (3.6-5.0); Sodium - POC 143 mmol/L (135-145); pH - POC 7.32 (7.35-7.45)
--- NOTE | 2023-07-18 13:31 | W.PN.CT.SURG ---
CT Surgery Operative Note
-
Pre-op Diagnosis: nstemi
3 vcad
s/p right achilles tendon repair
Post-op Diagnosis: Same
Procedure: Cabg x 7, on pump
portillo - diag/lad
jignesh- ramus/om1/om3
ao-svg- om2
ao- svg- rca
Levh
RSF
Primary Surgeon: Racheloom
Assisting Surgeons: Murt - chest and leg
Zini - leg
Specimen: None
Cultures: None
Complications / Blood Loss: None
Findings: DELBERT with preserved EF pre and post revasc,no new wma
good conduits
good targets
--- NOTE | 2023-07-18 13:54 | PTCARENOTE ---
Received pt from [facility] at 1345; Pt intubated and sedated; NSR on monitor and VSS; Epicardial A/V wires tested, temp pacer set to VVI 50/5/3 and no pacing noted; RIJ Cordis with SLIC, Left A-line and PIV x2 all lines leveled and zeroed; Levo, Insulin
and Precedex infusing see flow sheet for details; Lungs diminished; ET Tube 8 and 22 @ lip; Vent settings FiO2 60%, PEEP 5, Tidal volume 600, and Rate 14; CT x3 to -20 wall suction, no air leak and no crepitus noted; hypoactive bowel sounds; Luna
catheter draining clear yellow urine; palpable pulses; no edema noted; all surgical sites C/D/I; see nursing documentation for further details.
[2023-07-18 13:55] LABS: HCO3 24.3 mmol/L (21-28); O2 Saturation % 99.2 % (94-98); PCO2 46 mmHg (35-48); PO2 128 mmHg (83-108); Potassium 4.6 mMOL/L (3.5-5.1); Sodium 138 mMOL/L (136-145); pH 7.33 (7.35-7.45)
[2023-07-18 13:56] LABS: Hematocrit 40.2 % (39.0-52.0); Hemoglobin 13.7 g/dL (13.0-18.0); Platelet Count 214 10^3/uL (130-400)
[2023-07-18 14:04] LABS: INR 1.43; PT 17.3 Sec (11.4-14.6)
[2023-07-18 14:05] LABS: APTT 27.8 Sec (23.4-35.0)
[2023-07-18 14:10] LABS: Blood Urea Nitrogen 25 mg/dl (9-20); Estimated Creatinine Clearance 76 ml/min; Glucose 99 mg/dl (70-99); Magnesium 3.4 mg/dl (1.6-2.3)
[2023-07-18 14:20] LABS: Glucose - Point of Care 96 mg/dl (70-99)
--- NOTE | 2023-07-18 14:33 | CON.INTV ---
Consultation
Consultation Request
Date/Time Consultation Requested: 07/18/2023 - 124
Date/Time Consultation Performed: 07/18/2023 - 141
Requesting Provider: CAROLYN Alva
Performing Provider: Dr. Sterling
Reason for Consultation: s/p CABG x7
Medical History
-
Chief Complaint: Chest tightness + cough
History of Present Illness:
62-year-old male with past medical history of hypertension and former tobacco use disorder who presents from [facility] where he had a right Achilles repair, and soon after waking up he had chest tightness with abdominal distention
and coughing up pink sputum. In the ER he was afebrile to 97.6 �F, heart rate 94, BP 159/94, and saturating 99% on room air. Labs showed leukocytosis to 14.4, glucose 134, and initial troponin 0.043. CXR showed no active cardiopulmonary disease;
CTA chest showed no evidence of acute PE however there was suboptimal timing of contrast bolus, and there was mild interstitial airspace disease at the posterior RUL suggesting interstitial pneumonia. Patient was admitted to the hospitalist
service, and cardiology was consulted due to concern for NSTEMI, as troponin level continued to rise to a peak of 0.701 on 07/14. Left heart catheterization performed on 07/15 showing multivessel CAD involving proximal LAD, diagonal, first, second
and third obtuse marginal branches and a chronically occluded RCA. LVEF was 50% and LVEDP was elevated at 30 mmHg. Cardiothoracic surgery was consulted for CABG. Today, patient underwent CABG x 7 on pump with no complications and patient
transferred to CVICU postoperatively. Invoicing Specialist/pulmonary service consulted for further recommendations.
When I saw the patient he was on pressure support on 08/23 at 40% FiO2, breathing at 10 respiratory, with PIP at 11 cmH2O and VTe of 876 mL. He was on Levophed at 4mcg/min, insulin drip at 2.6units/hr, and he had a mediastinal chest tube x 1, and a
left/right pleural chest tube. BP via left radial A-line showed 99/60, BP via NIBP was 121/93, heart rate 71 and he was saturating 98%. He was easily arousable and in no acute distress.
PMHx: Chronic back pain, hypertension, former tobacco use disorder, personal history of COVID-19 (April 2020)
PSHx: Achilles tendon repair, oral surgery, tonsillectomy
Past Medical History
Past Medical History: Other (above as per HPI)
Past Surgical History: Other (above as per HPI)
Social History
Tobacco: Former Smoker
Alcohol: None
Drug: None
Family History
Family History: CAD (Father: History of heart attack)
Allergies / Home Medications
Allergies
Allergy/AdvReac Type Severity Reaction Status Date / Time
No Known Allergies Allergy Verified 07/14/23 15:01
Home Medications
�Medication �Instructions �Recorded �Confirmed �Last Taken �Type
aspirin 325 mg tablet 325 mg PO DAILY x 30 days post 07/14/23 07/15/23 Unknown History
07/14/23 surgery
ibuprofen 600 mg tablet 600 mg PO Q6H PRN pain 07/14/23 07/15/23 Unknown History
tramadol 50 mg tablet 50 mg PO Q6H PRN pain 07/14/23 07/15/23 Unknown History
gabapentin 300 mg capsule 300 mg PO TID post surgery pain 07/15/23 07/15/23 Unknown History
Review of Systems
-
Unable to Obtain full review of systems at this time due to: Patient Intubation
Vitals / Labs / Diagnostic Testing
Vital Signs
Temp Pulse Resp BP Pulse Ox
100.2 F 67 6 106/72 97
07/18/23 17:52 07/18/23 18:05 07/18/23 18:05 07/18/23 18:00 07/18/23 18:05
Lab Data
07/18/23 16:43
07/18/23 13:45
Laboratory Results
07/18/23 07/18/23 07/18/23
13:45 16:43 17:45
PT 17.3 H
INR 1.43
APTT 27.8
pH 7.33 L 7.44 7.45
pCO2 46 32 L 31 L
pO2 128 H 92 109 H
HCO3 24.3 21.7 21.5
O2 Delivery Level
Diagnostic Testing:
Physical Exam
-
HEENT: Normocephalic and Anicteric
Cardiovascular: S1/S2, Rub and Peripheral Edema (negative)
Respiratory: Wheeze (negative), Rales (negative), Rhonchi (negative), Non-Labored Respirations and Other (ETT in place; mechanical breath sounds heard bilaterally)
GI: Soft, Non Distended and Non Tender
Neurology: Other (Lethargic; easily arousable to voice)
Skin: Warm, Dry and Other (Cast along right lower extremity)
General: Comfortable and Chills (negative)
Assessment
-
Assessment: 62-year-old male with a PMHx of hypertension, personal history of COVID-19 (05/11) and former tobacco use disorder who presents from [facility] where he had a right Achilles repair, and soon after waking up he had chest
tightness with abdominal distention and coughing up pink sputum. CTA chest showed areas of atelectasis in the posterior right upper lobe as well as the bases, and initial troponin was elevated and it peaked at 0.701 on 07/14. Cardiology consulted
and patient diagnosed with NSTEMI. LHC performed on 07/16/2023 showing multivessel CAD and cardiothoracic surgery was consulted who performed CABG x 7 on 07/18/2023. Patient transferred to CVICU postoperatively and now critical care services
consulted for additional management/recommendations.
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
Impression:
#Multivessel CAD with NSTEMI s/p CABG x 7 (POD #0)
#Acute HFpEF exacerbation with elevated LVEDP at 30 [address] ([address] [facility] on 07-16-2023)
#Prediabetes (HbA1c: 6.1)
#Personal history of COVID-19 (05/02/2020)
#Chronic back pain
#Former tobacco use disorder
Plan:
Ventilator settings reviewed
FiO2 will be weaned to maintain SpO2 >94%
Minute ventilation will be adjusted
Arterial blood gases will be monitored
Spontaneous breathing trial will be attempted with hopeful extubation after anesthesia/sedation wear off
Pulmonary artery catheter parameters will be followed to maintain MAP >65
Pressors/antihypertensive/inotropes/diuretics will be provided as needed
Monitor chest tube output (left + right pleural chest tubes/mediastinal chest tube X1)
Monitor hemoglobin
Monitor platelet count and coags
Transfuse blood product if needed to maintain Hb >8 g/dL; platelets >50k
CT surgery managing chest tubes
Monitor blood sugar with goal BG 140-180 mg/dL
Insulin drip per protocol
Maintain LDL <70 with high intensity statin
Beta-kathy
Aspiration precautions
VAP prevention protocol
DVT prophylaxis
Early nutrition
Early mobilization
Pain control
Critical care statement: A total of 46 minutes of critical care time was provided for this patient today. This includes management of ventilator, spontaneous breathing trial, arterial blood gases, pressors, of unstable vital signs, evaluation of the
patient at bedside, reviewing the patient's pertinent medical records including radiographs, microbiology, laboratory evaluations, and discussion with primary team and critical care nursing.
Data:
CXR 07-18-2023: Grossly clear lungs
CXR 07-14-2023: No evidence of active cardiopulmonary disease.
CTA Chest 07-14-2023:
1).Imaging for peripheral pulmonary emboli is limited by suboptimal timing of the contrast bolus
There is no central pulmonary embolism.
2).There is mild interstitial airspace disease at the posterior segment of the right upper lobe suggesting interstitial pneumonia.
[2023-07-18] MEDS: ANCEF 10 IV ×2 (14:39)
[2023-07-18] MEDS: TYLENOL PO (14:40)
[2023-07-18] MEDS: NEURONTIN PO ×3 (14:40→16:50)
[2023-07-18] MEDS: NSS 500 IV (14:40)
[2023-07-18] MEDS: OFIRMEV 100 IV (14:57)
[2023-07-18 15:09] LABS: Glucose - Point of Care 98 mg/dl (70-99)
[2023-07-18] MEDS: COLACE PO (15:22)
[2023-07-18] MEDS: ASPIRIN PO (15:22)
[2023-07-18] MEDS: HEPARIN SC (15:22)
[2023-07-18] MEDS: TOPROL XL PO (15:23)
[2023-07-18] MEDS: PEPCID PO (15:23)
[2023-07-18] MEDS: MIRALAX PO (15:23)
[2023-07-18] MEDS: ALBUMIN 5% 250 IV ×2 (15:48→17:54)
[2023-07-18 16:03] LABS: Glucose - Point of Care 118 mg/dl (70-99)
[2023-07-18 16:47] LABS: Glucose - Point of Care 131 mg/dl (70-99)
[2023-07-18] MEDS: LIPITOR PO (16:50)
[2023-07-18 16:52] LABS: B.E. -1.6 mmol/L; HCO3 21.7 mmol/L (21-28); Hematocrit 37.3 % (39.0-52.0); Hemoglobin 13.4 g/dL (13.0-18.0); O2 Saturation % 98.4 % (94-98); PCO2 32 mmHg (35-48); PO2 92 mmHg (83-108); Platelet Count 225 10^3/uL (130-400); pH 7.44 (7.35-7.45)
--- NOTE | 2023-07-18 17:00 | PTCARENOTE ---
pt received from previous RN, drowsy but arousable, nods head appropriately. SR on the monitor, HR 60s. +rub. A&V wires, not connected to pacer box. CVP ~10. mechanically ventilated, ETT #8/0, 22cm@lip. SIMV 16, TV 500, PEEP 5, FIO2 40%. POX 97%.
lungs clear/diminished. CT x3, no air leak or crepitus noted. hypoactive BS. clarke in place, clear yellow urine. sternal incision ELAYNE, approximated. chest tube site c/d/i. L groin c/d/i. LLE IVAN bandage in place. RLE immobilizer in place. RIJ cordis
w/ slick. L radial [place] flushed, zeroed, and calibrated. PIV x2. insulin gtt running as ordered. 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
--- NOTE | 2023-07-18 17:49 | W.PN.CARDCBS ---
Today's Communication / Plan
-
Plan:
-Patient seen post op. He is alert and is following commands
-CABG x 7 as above.
-Continue high intensity statin
-Needs ongoing good control sugars and followup : borderline diabetes
-aspirin and Plavix for 6-12 months post op with positive troponin on presentation
-Will need PT following right Achilles repair 07/14/2023
Impression / Plan
-
Primary Detail Maker And Fitter: none prior to admission
Assessment:
-Multivessel CADz / NSTEMI s/p CABG: portillo-diag/lad, ONXI-[id number], SVG-OM2, SVG-RCA
-Achilles rupture s/p repair
-Chest tightness post op achilles repair
-NSTEMI, peak trop 0.7
-3V CAD by cath 07/16/23
-Leukocytosis
-R Achilles repair surgery 07/14/23
-remote former smoker
-FH of CAD in father, multiple MIs
ECHO 07/15/23: EF 55-60, basal inferolateral hypokinesis suggested in some views, MAC
Plan:
-Patient seen post op. He is alert and is following commands
-CABG x 7 as above.
-Continue high intensity statin
-Needs ongoing good control sugars and followup : borderline diabetes
-aspirin and Plavix for 6-12 months post op with positive troponin on presentation
-Will need PT following right Achilles repair 07/14/2023
Progress Note - Detail Maker And Fitter
Subjective
Date of Service: July 18, 2023
Awake post op and responding. Remains intubated
Objective
Labs:
07/18/23 16:43
07/18/23 13:45
Labs
Hgb 13.4 g/dL (13.0-18.0) 07/18/23 16:43
Hct 37.3 % (39.0-52.0) L 07/18/23 16:43
Plt Count 225 10^3/uL (130-400) 07/18/23 16:43
PT 17.3 Sec (11.4-14.6) H 07/18/23 13:45
INR 1.43 07/18/23 13:45
APTT 27.8 Sec (23.4-35.0) 07/18/23 13:45
Sodium 135 mmol/L (135-145) 07/17/23 04:25
Potassium 4.3 mmol/L (3.5-5.1) 07/17/23 04:25
BUN 25 mg/dl (9-20) H 07/18/23 13:45
Creatinine 1.2 mg/dL (0.7-1.3) 07/18/23 13:45
Glucose 99 mg/dl (70-99) 07/18/23 13:45
Vital Signs and I&O:
Vital Signs
Temp Pulse Resp BP Pulse Ox
100 F 71 10 121/93 98
07/18/23 17:00 07/18/23 17:00 07/18/23 17:00 07/18/23 17:00 07/18/23 17:00
Vital Signs
Temp Pulse Resp BP Pulse Ox
100 F 71 10 121/93 98
07/18/23 17:00 07/18/23 17:00 07/18/23 17:00 07/18/23 17:00 07/18/23 17:00
Intake & Output
07/15/23 07/16/23 07/17/23 07/18/23
23:59 23:59 23:59 23:59
Intake Total 1200 / 1200 960 / 960 960 / 960 529.3 / 529.3
Output Total 1700 / 1700 870 / 870
Balance -500 / -500 960 / 960 960 / 960 -340.7 / -340.7
Physical Exam
Physical Exam
Gen: ET tube in place
Lungs: clear
CV : RRR no murmur
Ext: post op. No edema
[2023-07-18 17:52] LABS: Glucose - Point of Care 119 mg/dl (70-99)
[2023-07-18 17:53] LABS: B.E. -1.6 mmol/L; HCO3 21.5 mmol/L (21-28); Ionized Calcium 1.06 mMOL/L (1.15-1.33); O2 Saturation % 99.2 % (94-98); PCO2 31 mmHg (35-48); PO2 109 mmHg (83-108); Potassium 4.5 mMOL/L (3.5-5.1); pH 7.45 (7.35-7.45)
--- NOTE | 2023-07-18 18:12 | PTCARENOTE ---
pt placed on CPAP trial @~1710, a couple apneic periods. SLUDGE CONTROL OPERATOR aware, improved as trial continued. ABG and H&H drawn. SLUDGE CONTROL OPERATOR aware of results. pt extubated @1800 to 6LNC. oriented x4. IS 1500-1750ml.
[2023-07-18] MEDS: CALCIUM CHLORIDE 10% SYRINGE 50 MG IV (18:19)
[2023-07-18] MEDS: CALCIUM CHLORIDE 10% SYRINGE 50 ML IV (18:19)
--- NOTE | 2023-07-18 18:22 | RESPNOTE ---
Patient extubated at 1800 without incident per protocol
[2023-07-18] MEDS: DILAUDID 0.25 MG IV (19:11)
--- NOTE | 2023-07-18 19:45 | PTCARENOTE ---
assumed care of pt from previous RN, walking rounds completed. pt A&Ox4, drowsy. pt SR on tele-monitor, w/ intermittent bradycardia. temp epicardial A/V wires w/ back-up settings AAI 40/8. pacer on, unplugged at this time per CVPA. POX 98% on [address] x3 (R & L pleural, mediastinal) to -20cm wall suction, draining sanguineous drainage. no air leaks noted. abd s/n, hypoactive BS. clarke catheter draining clear, yellow urine. R IJ cordis w/ SLIC. L radial a-line. all lines leveled, zeroed,
flushed. PIV x2 intact. levo and insulin infusing. see worklist for titrations. all surgical sites stable. R leg in immobilizer s/p ortho surgery. see worklist for complete nursing assessment, interventions, VS, and I&Os.
[2023-07-18] MEDS: ANCEF 5 IV (20:04)
[2023-07-18] MEDS: CALCIUM CHLORIDE 10% SYRINGE 60 MG IV (20:04)
[2023-07-18] MEDS: SENOKOT-S 1 TABLET PO (20:05)
[2023-07-18] MEDS: LOW STRENGTH ASPIRIN 81 MG PO (20:05)
[2023-07-18 20:09] LABS: Glucose - Point of Care 111 mg/dl (70-99)
[2023-07-18] MEDS: NEURONTIN 100 MG PO (22:02)
[2023-07-18] MEDS: TYLENOL 1000 MG PO (22:02)
[2023-07-18] MEDS: ZOFRAN 4 MG IV (22:14)
[2023-07-18 22:17] LABS: Glucose - Point of Care 109 mg/dl (70-99)
[2023-07-19] VITALS (30 sets, daily range): BP systolic 91–136; BP diastolic 64–85; PULSE 86–92; O2SAT 95; BMI 28.6
--- NOTE | 2023-07-19 | PTCARENOTE ---
pt reassessed. VSS. SR on tele-monitor, HR 60s-70s. POX 95% on 2 L NC. levo and insulin infusing. see worklist for gtt titrations. CT drainage WNL. U/O adequate.
[2023-07-19 00:09] LABS: Glucose - Point of Care 119 mg/dl (70-99)
[2023-07-19] MEDS: DILAUDID 0.25 MG IV (01:41)
[2023-07-19 02:04] LABS: Glucose - Point of Care 95 mg/dl (70-99)
--- NOTE | 2023-07-19 03:18 | W.PN.CT ---
Today's Communication / Plan
-
Plan:
-No major issues overnight, hemodynamically and neurologically intact
-Successfully extubated on 07/18/23 @ 1800
-On insulin gtt per protocol, Levophed gtt weaned off overnight
-Acuter postop brief episodes of sinus bradycardia (39 bpm) with associated hypotension, hold BB today, Amiodarone has been d/c'd per Dr. Macario
-Pacer wire functional and currently @ backup of 45 bpm
-Acute postop EKG with pronounced Anteroseptal ST elevation (questionable infarct vs pericarditis)-Cardiology to comment
-No swan, U/O since OR 1265 mL
-Monitor chest tube output: med 20/160 , R/L pls 100/270, will consider d/c of meds and transition pleurals to bulb per Dr. Macario
-Cont. current meds (ASA, Lopressor-held last night d/t bradycardia and hypotension; will add Plavix)
-D/C slic and a-line once Cardiology R/O infarct from postop EKG
-Transfer to tele phase once off insulin today
-D/C clarke
-Maintain cordis
-Maintain temporary A/V wires (will cut befor d/c home)
-Encourage use of IS
-OOB into chair/PT/OT f/u given recent Achilles tendon repair
-Wean off of O2 as tolerated
Assessment / Plan
-
Assessment:
-S/p Cabg x 7 (portillo - diag/lad, jignesh- ramus/om1/om3, ao-svg- om2, ao- svg- rca)/L EVH/RSF, by Dr. Macario, 07/18/23, pod#1
-Severe 3v CAD
-[place]
-NSTEMI (peak trop 0.701)
-LVEF 60-65% per intraop DELBERT
-HTN
-Prediabetes (hgb A1C 6.1)
-Class 1 obesity (BMI 30.2)
-S/P R Achilles Tendon Repair, 07/14/23
-Acute postop blood loss/anemia (stable without transfusion)
-Acute postop atelectasis
-Acute postop hypovolemia with subsequent hypervolemia
-Acute postop sinus bradycardia with associated hypotension (HR 39 bpm)
-Acute postop EKG with pronounced Anteroseptal ST elevation (questionable infarct vs pericarditis)
Discussed patient care with: Cardiology, Nursing, Respiratory Therapy, Pharmacy and Care Team
Subjective
Procedure
S/p Cabg x 7 (portillo - diag/lad, jignesh- ramus/om1/om3, ao-svg- om2, ao- svg- rca)/L EVH/RSF, by Dr. Macario, 07/18/23
-
Date of Service: July 19, 2023
Pt c/o pleuritic chest pain, 'it hurts when I take deep breaths,' and vomited once last night, otherwise feels well
Objective Data
-
PT 17.3 Sec (11.4-14.6) H 07/18/23 13:45
INR 1.43 07/18/23 13:45
APTT 27.8 Sec (23.4-35.0) 07/18/23 13:45
Vital Signs
Vital Signs
Temp Pulse Resp BP Pulse Ox
99.7 F 75 13 111/72 95
07/19/23 03:00 07/19/23 03:00 07/19/23 03:00 07/19/23 03:00 07/19/23 03:00
CT Intake/Output/Weight
07/18/23 07/18/23 07/19/23
06:59 18:59 06:59
Intake Total 563.2 / 1131.9 568.7 / 1131.9
Output Total 970 / 1610 640 / 1610
Balance -406.8 / -478.1 -71.3 / -478.1
SaO2: 95 (2L)
Physical Exam
-
General: Awake, Oriented and AOx3
Cardiovascular: Regular rate & rhythm, No Murmurs, No Rub and No Gallop
Respiratory: Decreased Breath Sounds (at bases otherwise clear)
Sternum: Stable
Incision: Clean, Dry, Intact and Dressing Intact
Extremities: No Edema
Data Reviewed
-
Lab Results: Results Reviewed
Medications: Active Meds Reviewed
Chest X-Ray: Report Reviewed and Image Reviewed
ECG: Report Reviewed and Image Reviewed
[2023-07-19] MEDS: ANCEF 5 IV ×2 (03:58→11:28)
[2023-07-19 04:12] LABS: Glucose - Point of Care 122 mg/dl (70-99)
--- NOTE | 2023-07-19 04:15 | ECGCV ---
<Ed WEI Mack PA> notified of ECG critical value identified by electronic interpretation on ECG completed on <07/19/23>, at <0355>.
[2023-07-19 04:17] LABS: Hematocrit 32.9 % (39.0-52.0); Hemoglobin 11.5 g/dL (13.0-18.0); Ionized Calcium 1.19 mMOL/L (1.15-1.33); Mean Corpuscular Hgb 29.3 pg (27.0-31.0); Mean Corpuscular Volume 83.9 fL (80.0-94.0); Mean Platelet Volume 10.6 fL (7.4-10.4); Platelet Count 196 10^3/uL (130-400); Red Blood Cell Count 3.92 10^6/uL (4.70-6.10); Red Cell Dist. Width 13.2 % (11.5-14.5); White Blood Cell Count 13.4 10^3/uL (4.8-10.8)
[2023-07-19 04:31] LABS: Blood Urea Nitrogen 33 mg/dl (9-20); Calcium 9.1 mg/dl (8.4-10.2); Carbon Dioxide 22 mmol/L (22-30); Chloride 110 mmol/L (98-107); Estimated Creatinine Clearance 76 ml/min; Glucose 129 mg/dl (70-99); Magnesium 2.2 mg/dl (1.6-2.3); Potassium 4.9 mmol/L (3.5-5.1); Sodium 138 mmol/L (135-145); eGFR > 60.00
[2023-07-19] MEDS: TYLENOL 1000 MG PO ×3 (06:03→21:36)
[2023-07-19 06:11] LABS: Glucose - Point of Care 119 mg/dl (70-99)
--- NOTE | 2023-07-19 07:00 | PTCARENOTE ---
Bedside walking rounds report received. Patient is awake ald alert resting in bed on 2L nasal canula in no acute distress. Neuro intact. IS to 500 x 10 reps. Ecouraged hourly or more. NSR on monitor. Patient has a slight audible pericardial
friction rub auscultated: ekg demonstrates same from this am: plan is to repeat 12 led ekg at noon to evaluate for serial changes/dc left radial art line if stable and dc med chest tube and clarke this am. Temp epicardial A wire to medtronic box: AAI
demand: backup rate of 45bpm: see flowrecord for other settings. Temp epicardial v wire off connected to medtronic pacing wire. Chest tubes x 3: right and left pleural: and mediastinal chest tube each to -20cm wall suction. Right cast boot intact:
palpble bilateral perpheral pulses: see flowrecord for remaining assessments.
[2023-07-19 08:01] LABS: Glucose - Point of Care 112 mg/dl (70-99)
[2023-07-19] MEDS: BACTROBAN 2% OINTMENT 1 APPLIC NASAL ×2 (08:42→21:36)
[2023-07-19] MEDS: LOW STRENGTH ASPIRIN 81 MG PO (08:43)
[2023-07-19] MEDS: SENOKOT-S 1 TABLET PO ×2 (08:43→21:37)
[2023-07-19] MEDS: NEURONTIN 100 MG PO ×3 (08:43→21:37)
[2023-07-19] MEDS: PROTONIX 40 MG PO (08:43)
[2023-07-19] MEDS: PLAVIX 75 MG PO (08:43)
[2023-07-19] MEDS: LIDOCAINE 4% PATCH 1 PATCH TOPICAL (08:44)
--- NOTE | 2023-07-19 09:15 | PTCARENOTE ---
Mediastinal chest tube suture removed and mediastinal chest tube dc as per order. Luna catheter also dc. Continue to monitor ABP and obtain EKG at 12 noon to monitor for serial changes.
--- NOTE | 2023-07-19 09:40 | W.PN.INTV ---
Today's Communication / Plan
Recommendations
Up OOB as tolerated
Encourage send spirometer
Given his NSTEMI, maintain SpO2 >94%
Beta-kathy, high intensity statin and start IVAN/ARB
PT/OT
Patient is now CVICU�telemetry status. Intensive/pulmonary service will now sign off. Please reconsult if there are any additional questions/concerns, or if patient's respiratory status deteriorates.
Assessment
-
Assessment: 62-year-old male with a PMHx of hypertension, personal history of COVID-19 (05/11) and former tobacco use disorder who presents from [facility] where he had a right Achilles repair, and soon after waking up he had chest
tightness with abdominal distention and coughing up pink sputum. CTA chest showed areas of atelectasis in the posterior right upper lobe as well as the bases, and initial troponin was elevated and it peaked at 0.701 on 07/14. Cardiology consulted
and patient diagnosed with NSTEMI. LHC performed on 07/16/2023 showing multivessel CAD and cardiothoracic surgery was consulted who performed CABG x 7 on 07/18/2023. Patient transferred to CVICU postoperatively and now critical care services
consulted for additional management/recommendations.
Chronic medical conditions EPIDEMIOLOGY INTERN: Chronic back pain, hypertension, former tobacco use disorder, personal history of COVID-19 (April 2020)
Impression:
#Multivessel CAD with NSTEMI s/p CABG x 7 (POD #1)
#Acute HFpEF exacerbation with elevated LVEDP at 30 mmHg (via LHC on 07-16-2023)
#Prediabetes (HbA1c: 6.1)
#Personal history of COVID-19 (05/02/2020)
#Chronic back pain
#Former tobacco use disorder
Plan:
Tolerated extubation
Maintain SpO2 >94%
Encourage incentive spirometry
Increase activity
Aspiration precautions
Pulmonary artery catheter and arterial line removed
Removal of right�IJ cordis as per cardiothoracic surgery team
Pressors have been weaned
Continue to monitor chest tube output (left + right pleural chest tubes - mediastinal chest tube already removed)
Follow hemoglobin
Continue to follow platelet count and coags
Transfuse blood product as needed to maintain Hb >8 g/dL; platelets >50k
CT surgery managing chest tubes as well
Maintain LDL <70 with high intensity statin
Continue beta-kathy and considering he is pre-diabetic would also initiate IVAN-I/ARB
Follow blood sugar with goal BG 140-180 mg/dL
Insulin supplementation continues as needed
Early nutrition
Early mobilization
DVT prophylaxis
Cardiac rehab consult; PT/OT
Patient is now CVICU�telemetry status. Intensive/pulmonary service will now sign off. Thank you for allowing us to be involved in the care of this patient. Please reconsult if there are any additional questions/concerns, or if patient's
respiratory status deteriorates.
Reviewed the patient's pertinent medical records including radiographs, microbiology, laboratory evaluations, and discussion with primary team, and critical care nursing.
Total time spent today was 40 minutes for this encounter. Time includes reviewing laboratory test/imaging results, reviewing pertinent medical records, obtaining and reviewing medical history, performing an appropriate exam, ordering medications,
tests and procedures. Time also includes documentation of this encounter, coordinating patient care and communicating with other healthcare professionals. Total time does not include separately billed tests performed on this date of service.
Data:
CXR 07-19-2023: Discontinued endotracheal tube. No pneumothorax. Artifact versus trace pneumopericardium. Possible minor atelectasis versus trace effusion on the left. No congestive heart failure.
CXR 07-18-2023: Grossly clear lungs
CXR 07-14-2023: No evidence of active cardiopulmonary disease.
CTA Chest 07-14-2023:
1).Imaging for peripheral pulmonary emboli is limited by suboptimal timing of the contrast bolus
There is no central pulmonary embolism.
2).There is mild interstitial airspace disease at the posterior segment of the right upper lobe suggesting interstitial pneumonia.
Subjective Dataa
Subjective Data
Date of Service:
Date of Service: July 19, 2023
Chief Complaint: Line Cleaner Follow Up and Pulmonary Follow Up
Subjective:
Patient seen and evaluated today in the late morning hours. Sitting in chair in no acute distress. BP 117/76. He is on room air breathing comfortably. SpO2 91%. Right and left pleural chest tube in place. He is using incentive spirometer
pulling about 1 L. He feels tired overall but no shortness of breath, headache, fevers or chills.
Review of Systems
General: Other (12 point ROS performed and is negative unless mentioned above.)
Objective Data
Data Reviewed
Vital Signs / I&O / Oxygen:
Vital Signs
Temp Pulse Resp BP Pulse Ox
98.8 F 83 12 103/72 96
07/19/23 12:33 07/19/23 13:15 07/19/23 13:15 07/19/23 13:00 07/19/23 13:15
Intake and Output
07/18/23 07/19/23 07/20/23
06:59 06:59 06:59
Intake Total 960 / 960 1199.4 / 1221.7 768.2 / 768.2
Output Total 1740 / 1780 175 / 175
Balance 960 / 960 -540.6 / -558.3 593.2 / 593.2
SaO2 [CPAP] 97
SaO2 [SIMV] 97
SaO2 96
Nasal Cannula flow liters per 2
minute
Physical Exam
General: Respiratory Distress (negative) and Comfortable
HEENT: Normocephalic and Anicteric
Cardiovascular: S1-S2 and Peripheral Edema (negative)
Respiratory: Wheeze (negative), Crackles (negative), Rhonchi (negative), Non-Labored Respirations and Chest Tube (Right + left pleural chest tubes)
GI: Soft, Non Distended and Non Tender
Neurology: Awake and Alert
Skin: Warm and Dry
Labs/Micro/Reports
Lab Data
07/19/23 04:07
07/19/23 04:07
Laboratory Results
07/18/23 07/18/23 07/18/23
13:45 16:43 17:45
PT 17.3 H
INR 1.43
APTT 27.8
pH 7.33 L 7.44 7.45
pCO2 46 32 L 31 L
pO2 128 H 92 109 H
HCO3 24.3 21.7 21.5
O2 Delivery Level
--- NOTE | 2023-07-19 09:45 | W.PN.CARDCBS ---
Addendum entered and electronically signed by Lennox Moffett MD 07/19/23 10:47:
I saw and examined the patient.
The Accounting Policy Consultant's note was reviewed and I agree with the note.
Comment:
GEN: No distress, awake, Ox3
HEENT: supple, anicteric, mmm
LUNGS: CTA, no wheezes/rales
CV: Reg, S1/S2, no rub
ABD: soft, BS+, NT/ND
EXT: No edema
NEURO: Gross non-focal
SKIN: sternotomy
Plan:
ECG consistent with pericarditis. No clear rub.
off Levo. Cont ASA/Plavix
having some bradycardia.
Original Note:
Today's Communication / Plan
-
Repeat ECG this afternoon
Levo weaned this AM
Impression / Plan
-
PCP: Dr. Tee Lipscomb
Primary Resume Writer: none prior to admission
Assessment:
-CAD
NSTEMI, peak Troponin 0.7
multivessel CAD by cath 07/16/23
s/p CABG BURDEN-Diag/LAD, UDDM-Wctko-VU2-OM3, SVG-OM2, SVG-RCA 07/18/23
-Achilles rupture s/p repair 07/14/23
-Chest tightness post op Achilles repair
-Leukocytosis
-remote former smoker
-FH of CAD in father, multiple MIs
-Abnormal ECG, possible pericarditis
ECHO 07/15/23: EF 55-60, basal inferolateral hypokinesis suggested in some views, MAC
Plan:
-Patient with evidence of pericarditis on ECG. Chest pain only with deep inspiration. Follow up ECG ordered for 07/19/23 afternoon
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
-Pending BP will eventually start Lopressor. Patient was not taking any BP meds prior to admission
-LDL 115 and patient is new to atorvastatin 80 mg daily
-Aspirin and Plavix for 6-12 months post op with NSTEMI
-Will need PT following right Achilles repair 07/14/2023 and then cardiac rehab thereafter
HPI: Patient is a 62-year-old male without significant past medical history who underwent right Achilles repair surgery under general anesthesia at outpatient orthopedic surgical center 07/14/2023. Postoperatively patient was noted to be hypoxic,
and complained of some left-sided chest tightness which he states lasted approximately 5 to 10 minutes and was transferred to the ER for evaluation and admission. Also reports he coughed up some pink sputum while in recovery at surgical center.
Upon arrival to ER, he underwent chest CT which was negative for PE or dissection. Initial troponin 0.043 resulting in cardiology consultation. No present chest discomfort. Denies history of cardiac issues, CP or SOB as OP.
Progress Note - Resume Writer
Subjective
Date of Service: July 19, 2023
Chest pain only with deep inspiration
Objective
Labs:
07/19/23 04:07
07/19/23 04:07
Labs
Hgb 11.5 g/dL (13.0-18.0) L 07/19/23 04:07
Hct 32.9 % (39.0-52.0) L 07/19/23 04:07
Plt Count 196 10^3/uL (130-400) 07/19/23 04:07
PT 17.3 Sec (11.4-14.6) H 07/18/23 13:45
INR 1.43 07/18/23 13:45
APTT 27.8 Sec (23.4-35.0) 07/18/23 13:45
Sodium 138 mmol/L (135-145) 07/19/23 04:07
Potassium 4.9 mmol/L (3.5-5.1) 07/19/23 04:07
BUN 33 mg/dl (9-20) H 07/19/23 04:07
Creatinine 1.2 mg/dL (0.7-1.3) 07/19/23 04:07
Glucose 129 mg/dl (70-99) H 07/19/23 04:07
Vital Signs and I&O:
Vital Signs
Temp Pulse Resp BP Pulse Ox
99.5 F 69 16 98/68 94
07/19/23 07:46 07/19/23 07:46 07/19/23 07:46 07/19/23 07:46 07/19/23 07:46
Vital Signs
Temp Pulse Resp BP Pulse Ox
99.5 F 69 16 98/68 94
07/19/23 07:46 07/19/23 07:46 07/19/23 07:46 07/19/23 07:46 07/19/23 07:46
Intake & Output
07/17/23 07/18/23 07/19/23 07/20/23
06:59 06:59 06:59 06:59
Intake Total 960 / 960 960 / 960 1199.4 / 1221.7 244.6 / 244.6
Output Total 1740 / 1780 145 / 145
Balance 960 / 960 960 / 960 -540.6 / -558.3 99.6 / 99.6
Physical Exam
Physical Exam
GEN: NAD. AAOx3
HEENT: MMM
LUNGS: Clear anterolaterally without wheeze
CV: Reg, no rub
ABD: soft, BS+
EXT: No edema B/L
NEURO: Gross non-focal
SKIN: No rash
[2023-07-19 10:48] LABS: Glucose - Point of Care 102 mg/dl (70-99)
[2023-07-19] MEDS: FLEXERIL 5 MG PO (11:29)
--- NOTE | 2023-07-19 12:00 | PTCARENOTE ---
No acute changes. Vitals stable. NSR. No urge to void as of yet. Left radial art line dc. Right IJ slik port dc .
--- NOTE | 2023-07-19 12:30 | PTCARENOTE ---
No acute changes noted on followup 12 lead ekg as ordered. Lucrecia Jaime PA-c ct surgery and Monique Zamora [facility] cardiology and Dr. Casey reviewed: pericarditis.
[2023-07-19 12:32] LABS: Glucose - Point of Care 96 mg/dl (70-99)
[2023-07-19 14:33] LABS: Glucose - Point of Care 101 mg/dl (70-99)
[2023-07-19] MEDS: NSS IV (15:52)
[2023-07-19] MEDS: ROXICODONE 5 MG PO (15:58)
[2023-07-19] MEDS: LIPITOR 80 MG PO (17:05)
[2023-07-19] MEDS: LOPRESSOR 12.5 MG PO (17:06)
[2023-07-19] MEDS: DILAUDID 0.5 MG IV (18:48)
--- NOTE | 2023-07-19 19:45 | PTCARENOTE ---
assumed care of pt from previous RN, walking rounds completed. pt resting in chair, assisted back to bed with 3 RNs. pt strict non-weight bearing on R leg s/p achilles repair. pt A&Ox4. NSR on tele-monitor, HR 80s. temp epicardial A/V wires w/
back-up settings AAI 45/8/0.5. pacer on, wires plugged in. POX 89-90% on RA. pt placed on 2 L NC, POX 95%. CTx2 (R & L pleural) to -20cm wall suction, draining sanguineous drainage. no air leaks, crepitus, tidaling noted. lungs clear to
auscultation, diminished breath sounds in b/l bases. abd s/n, +BS. no c/o nausea at time of assessment. all surgical sites stable. R IJ cordis w/ KVO. PIV x2 intact. PM plan of care discussed, pt in agreement. see worklist for complete nursing
assessment, interventions, VS, and I&Os.
--- NOTE | 2023-07-19 22:11 | W.PN.ANS.POP ---
Anesthesia Post Operative
- Anesthesia Post Op Note
Vital Signs Stable-See Nursing Note: Yes
Airway Patent: Yes
Adequate Pain Control: Yes
Change in Mental Status: No
Current Postoperative Nausea & Vomiting: No
Anesthesia Complications: No
General Anesthetic Recall: No
Unplanned Admission: No
Post Op Hydration Adequate: Yes
[2023-07-20] VITALS (16 sets, daily range): BP systolic 104–138; BP diastolic 71–83; PULSE 94–95; BMI 28.9
--- NOTE | 2023-07-20 | PTCARENOTE ---
assessment remains unchanged. VSS. NSR on tele-monitor. HR 80s. POX 93-94% on [address] drainage WNL. no c/o pain at this time.
[2023-07-20] MEDS: ROXICODONE 5 MG PO ×2 (02:10→23:38)
--- NOTE | 2023-07-20 04:00 | PTCARENOTE ---
assessment remains unchanged. VSS. NSR on tele-monitor. HR 80s-90s. POX 94-95% on 2 L NC. AM labs collected and sent. CT drainage minimal.
[2023-07-20 04:06] LABS: Hematocrit 30.7 % (39.0-52.0); Mean Corp Hgb Conc. 32.6 g/dL (33.0-37.0); Mean Corpuscular Hgb 28.7 pg (27.0-31.0); Mean Platelet Volume 10.9 fL (7.4-10.4); Platelet Count 158 10^3/uL (130-400); Red Blood Cell Count 3.49 10^6/uL (4.70-6.10); Red Cell Dist. Width 13.4 % (11.5-14.5); White Blood Cell Count 11.9 10^3/uL (4.8-10.8)
--- NOTE | 2023-07-20 04:10 | W.PN.CT ---
Today's Communication / Plan
-
Plan:
-No major issues overnight, hemodynamically and neurologically intact
-Postop episodes of brief sinus bradycardia has resolved. Now with episodes of sinus tachycardia, resume BB and start Amiodarone
-Acute postop EKG with pronounced Anteroseptal ST elevation, now showing global ST elevation c/w acute pericarditis. Cardiology and Dr. Pace concur
-Consider d/c of remaining chest tubes: R/L pleurals 45/150
-Cont. current meds (ASA, Plavix; will resume Lopressor and start Amiodarone )
-Maintain cordis another day
-Maintain temporary A/V wires (will cut before d/c home)
-Encourage use of IS
-OOB into chair/PT/OT f/u given recent Achilles tendon repair
-Wean off of O2 as tolerated
Assessment / Plan
-
Assessment:
-S/p Cabg x 7 (portillo - diag/lad, jigensh- ramus/om1/om3, ao-svg- om2, ao- svg- rca)/L EVH/RSF, by Dr. Macario, 07/18/23, pod#2
-Severe 3v CAD
-[place]
-NSTEMI (peak trop 0.701)
-LVEF 60-65% per intraop DELBERT
-HTN
-Prediabetes (hgb A1C 6.1)
-Class 1 obesity (BMI 30.2)
-S/P R Achilles Tendon Repair, 07/14/23
-Acute postop blood loss/anemia (stable without transfusion)
-Acute postop atelectasis
-Acute postop hypovolemia with subsequent hypervolemia
-Acute postop sinus bradycardia with associated hypotension (HR 39 bpm)
-Acute postop EKG with pronounced Anteroseptal ST elevation (questionable infarct vs pericarditis)
Discussed patient care with: Cardiology, Nursing, Respiratory Therapy, Pharmacy and Care Team
Subjective
Procedure
S/p Cabg x 7 (portillo - diag/lad, jignesh- ramus/om1/om3, ao-svg- om2, ao- svg- rca)/L EVH/RSF, by Dr. Macario, 07/18/23
-
Date of Service: July 20, 2023
Pt c/o pleuritic chest pain, otherwise feels well. Nausea/Vomiting has resolved
Objective Data
-
Lab Results
07/20/23 03:49
PT 17.3 Sec (11.4-14.6) H 07/18/23 13:45
INR 1.43 07/18/23 13:45
APTT 27.8 Sec (23.4-35.0) 07/18/23 13:45
Vital Signs
Vital Signs
Temp Pulse Resp BP Pulse Ox
98.3 F 90 18 121/73 95
07/20/23 04:00 07/20/23 04:00 07/20/23 04:00 07/20/23 04:00 07/20/23 04:00
CT Intake/Output/Weight
07/19/23 07/19/23 07/20/23
06:59 18:59 06:59
Intake Total 636.2 / 1221.7 1158.2 / 1278.2 120 / 1278.2
Output Total 770 / 1780 545 / 1035 490 / 1035
Balance -133.8 / -558.3 613.2 / 243.2 -370 / 243.2
SaO2: 95 (2L)
Physical Exam
-
General: Awake and AOx3
Cardiovascular: Regular rate & rhythm and No Murmurs
Respiratory: Decreased Breath Sounds
Sternum: Stable
Incision: Clean, Dry, Intact and Dressing Intact
Extremities: Other (+trace edema)
Data Reviewed
-
Lab Results: Results Reviewed
Medications: Active Meds Reviewed
Chest X-Ray: Report Reviewed and Image Reviewed
ECG: Report Reviewed and Image Reviewed
[2023-07-20 04:30] LABS: Blood Urea Nitrogen 35 mg/dl (9-20); Calcium 8.7 mg/dl (8.4-10.2); Carbon Dioxide 28 mmol/L (22-30); Chloride 104 mmol/L (98-107); Estimated Creatinine Clearance 82 ml/min; Glucose 125 mg/dl (70-99); Magnesium 2.1 mg/dl (1.6-2.3); Potassium 4.3 mmol/L (3.5-5.1); Sodium 138 mmol/L (135-145); eGFR > 60.00
--- NOTE | 2023-07-20 06:04 | ECGCV ---
<Ed WEI Mack PA> notified of ECG critical value identified by electronic interpretation on ECG completed on <07/20/23>, at <0550>.
[2023-07-20] MEDS: TYLENOL 1000 MG PO ×3 (06:24→22:00)
[2023-07-20] MEDS: PLAVIX 75 MG PO (08:10)
[2023-07-20] MEDS: NEURONTIN 100 MG PO ×3 (08:10→22:00)
[2023-07-20] MEDS: LIDOCAINE 4% PATCH 1 PATCH TOPICAL (08:10)
[2023-07-20] MEDS: PACERONE 200 MG PO ×2 (08:11→15:19)
[2023-07-20] MEDS: SENOKOT-S 1 TABLET PO ×2 (08:11→20:30)
[2023-07-20] MEDS: LOPRESSOR 25 MG PO ×2 (08:11→20:30)
[2023-07-20] MEDS: PROTONIX 40 MG PO (08:11)
[2023-07-20] MEDS: LOW STRENGTH ASPIRIN 81 MG PO (08:11)
[2023-07-20] MEDS: BACTROBAN 2% OINTMENT 1 APPLIC NASAL ×2 (08:12→20:31)
--- NOTE | 2023-07-20 09:15 | PTCARENOTE ---
PT/OT here: assisted patient oob with assist of 2 utilizing nonweightbearing technique on right leg: used rolling knee scooter and ambulated well with same: RN/PT/OT present for instruction and safety. OOB to chair.
--- NOTE | 2023-07-20 10:30 | PTCARENOTE ---
Assisted patient back to bed: chest tubes right and left pleural removed sutures dc. CXR port follow up.
--- NOTE | 2023-07-20 10:39 | W.PN.CARDCBS ---
Today's Communication / Plan
-
remains clinically stable with some pericarditis on ECG
Cont ASA/Plavix
start Metoprolol/Amiodarone
cont Atorvastatin
Impression / Plan
-
PCP: Dr. Tee Lipscomb
Primary Centrifugal Station Operator: none prior to admission
Assessment:
-CAD
NSTEMI, peak Troponin 0.7
multivessel CAD by cath 07/16/23
s/p CABG BURDEN-Diag/LAD, BQAY-Ocymr-RV6-OM3, SVG-OM2, SVG-RCA 07/18/23
-Achilles rupture s/p repair 07/14/23
-Chest tightness post op Achilles repair
-Leukocytosis
-remote former smoker
-FH of CAD in father, multiple MIs
-Abnormal ECG, possible pericarditis
ECHO 07/15/23: EF 55-60, basal inferolateral hypokinesis suggested in some views, MAC
Plan:
-Patient with evidence of pericarditis on ECG. minimal chest pains
-HD stable after Levophed weaned network support specialist 07/19/23
-start Metoprolol and Amiodarone
-LDL 115 and patient is new to atorvastatin 80 mg daily
-Aspirin and Plavix for 6-12 months post op with NSTEMI
-Will need PT following right Achilles repair 07/14/2023 and then cardiac rehab thereafter
HPI: Patient is a 62-year-old male without significant past medical history who underwent right Achilles repair surgery under general anesthesia at outpatient orthopedic surgical center 07/14/2023. Postoperatively patient was noted to be hypoxic,
and complained of some left-sided chest tightness which he states lasted approximately 5 to 10 minutes and was transferred to the ER for evaluation and admission. Also reports he coughed up some pink sputum while in recovery at surgical center.
Upon arrival to ER, he underwent chest CT which was negative for PE or dissection. Initial troponin 0.043 resulting in cardiology consultation. No present chest discomfort. Denies history of cardiac issues, CP or SOB as OP.
Progress Note - Centrifugal Station Operator
Subjective
Date of Service: July 20, 2023
Has minimal chest pains. Remains in sinus and overall feeling well
Objective
Labs:
07/20/23 03:49
07/20/23 03:49
Labs
Hgb 10.0 g/dL (13.0-18.0) L 07/20/23 03:49
Hct 30.7 % (39.0-52.0) L 07/20/23 03:49
Plt Count 158 10^3/uL (130-400) 07/20/23 03:49
PT 17.3 Sec (11.4-14.6) H 07/18/23 13:45
INR 1.43 07/18/23 13:45
APTT 27.8 Sec (23.4-35.0) 07/18/23 13:45
Sodium 138 mmol/L (135-145) 07/20/23 03:49
Potassium 4.3 mmol/L (3.5-5.1) 07/20/23 03:49
BUN 35 mg/dl (9-20) H 07/20/23 03:49
Creatinine 1.0 mg/dL (0.7-1.3) 07/20/23 03:49
Glucose 125 mg/dl (70-99) H 07/20/23 03:49
Vital Signs and I&O:
Vital Signs
Temp Pulse Resp BP Pulse Ox
98.8 F 86 18 104/73 94
07/20/23 07:35 07/20/23 10:00 07/20/23 07:35 07/20/23 08:59 07/20/23 08:00
Vital Signs
Temp Pulse Resp BP Pulse Ox
98.8 F 86 18 104/73 94
07/20/23 07:35 07/20/23 10:00 07/20/23 07:35 07/20/23 08:59 07/20/23 08:00
Intake & Output
07/18/23 07/19/23 07/20/23 07/21/23
06:59 06:59 06:59 06:59
Intake Total 960 / 960 1199.4 / 1221.7 1278.2 / 1278.2 135 / 135
Output Total 1740 / 1780 1340 / 1340 5 / 5
Balance 960 / 960 -540.6 / -558.3 -61.8 / -61.8 130 / 130
Physical Exam
Physical Exam
GEN: No distress, awake, Ox3
HEENT: supple, anicteric, mmm
LUNGS: CTA, no wheezes/rales
CV: Reg, S1/S2, + mild rub
ABD: soft, BS+, NT/ND
EXT: No edema
NEURO: Gross non-focal
SKIN: sternotomy
[2023-07-20] MEDS: HEPARIN 5000 UNITS SC ×2 (11:31→20:30)
--- NOTE | 2023-07-20 12:00 | PTCARENOTE ---
Assisted patient oob to bathroom using rolling knee scooter to observe non weight bearing on right leg. Patient demonstrated understanding of same with the goal of safety at all times. Voided. Gas No BM. Back oob to chair. Room air. NSR with PAC's.
[2023-07-20] MEDS: NSS IV (13:46)
--- NOTE | 2023-07-20 16:00 | PTCARENOTE ---
No acute changes. Vitals stable. OOB in chair then to bathroom via rolling scooter with assist of 1. No bm. Voided. NSR to st with pac's.
[2023-07-20] MEDS: LIPITOR 80 MG PO (17:45)
--- NOTE | 2023-07-20 18:00 | PTCARENOTE ---
Temp epicardial A/V wires disconnected from pacing box and insulated.CT surgical PA Pat aware of same. [employer] pacing box readily accessible in room.
--- NOTE | 2023-07-20 18:18 | PTCARENOTE ---
Addendum entered by Del Ramirez RN 07/20/23 18:28:
Time of this note was actually 7am.
Original Note:
Bedside walking rounds report received. Patient is awake and alert resting in bed on 2L nasal canula in no acute distress. Neuro intact. IS to 1000 x 10 reps. Encouraged hourly or more. NSR to sinus tach on monitor with PAC's. Patient has a slight
audible pericardial friction rub auscultated: ekg demonstrates same from this am: plan is per ct surgery and dc left and right pleural chest tube this am start subcutaneous heparin for added dvt prophylaxis Temp epicardial A wire to medtronic box:
AAI demand: backup rate of 45bpm: see flowrecord for other settings. Temp epicardial v wire off connected to medtronic pacing wire. Right cast boot related to achilles rupture repair surgery on 07/[address] Levy intact: palpable bilateral
peripheral pulses: see flowrecord for remaining assessments.
--- NOTE | 2023-07-20 20:35 | PTCARENOTE ---
Pt received from chhaya RN. Walking rounds completed. Pt AAOx3. Following commands appropriately. SR on monitor. HR 90s. Temporary epicardial wires intact and insulated. Palpable pulses. Left ankle edema noted. RA. POX 94%. Deep breathing and IS
encouraged. Abdomen soft/nontender. +BS. Pt states he can void in the urinal w/o issue. CT dressing CDI. All surgical sites stable. Right leg non-weight bearing s/p Achilles repair. Right IJ cordis CDI. PIVx2 intact and flushes. Pt states pain is
controlled at this time. See worklist for full VS, interventions, and assessment. Call forrester within reach.
[2023-07-20] MEDS: PACERONE 400 MG PO (22:01)
[2023-07-21] VITALS (15 sets, daily range): BP systolic 98–111; BP diastolic 63–79; PULSE 76; BMI 28.4
--- NOTE | 2023-07-21 | PTCARENOTE ---
Previous assessment unchanged. Pt SR on monitor. HR 70s. BP stable. Pt placed on 2 L NC. POX 97%. Pt resting in bed at this time. Pt p/o pain - see MAR. All surgical sites stable. Call forrester within reach.
--- NOTE | 2023-07-21 03:50 | W.PN.CT ---
Today's Communication / Plan
-
Plan:
-No major issues overnight, hemodynamically and neurologically intact
-Postop episodes of brief sinus bradycardia and hypotension has resolved. Now with episodes of sinus tachycardia, resumed BB and started Amiodarone
-Postop EKG with acute pericarditis, pt denies excruciating pain, Cardiology following
-Cont. current meds (ASA, Plavix; will resume Lopressor and start Amiodarone )
-SC Heparin added given Achilles tear/reduced mobility
-D/C cordis
-Maintain temporary A/V wires (will cut before d/c home)
-Encourage use of IS
-Wean off of O2 as tolerated
-OOB into chair/PT/OT f/u given recent Achilles tendon repair
-Home likely tomorrow
Assessment / Plan
-
Assessment:
-S/p Cabg x 7 (portillo - diag/lad, jignesh- ramus/om1/om3, ao-svg- om2, ao- svg- rca)/L EVH/RSF, by Dr. Macario, 07/18/23, pod#3
-Severe 3v CAD
-[place]
-NSTEMI (peak trop 0.701)
-LVEF 60-65% per intraop DELBERT
-HTN
-Prediabetes (hgb A1C 6.1)
-Class 1 obesity (BMI 30.2)
-S/P R Achilles Tendon Repair, 07/14/23
-Acute postop blood loss/anemia (stable without transfusion)
-Acute postop atelectasis
-Acute postop hypovolemia with subsequent hypervolemia
-Acute postop sinus bradycardia with associated hypotension (HR 39 bpm)
-Acute postop EKG with pronounced Anteroseptal ST elevation (questionable infarct vs pericarditis)
Discussed patient care with: Cardiology, Nursing, Respiratory Therapy, Pharmacy and Care Team
Subjective
Procedure
S/p Cabg x 7 (portillo - diag/lad, jignesh- ramus/om1/om3, ao-svg- om2, ao- svg- rca)/L EVH/RSF, by Dr. Macario, 07/18/23
-
Date of Service: July 21, 2023
Pt c/o mild incisional pain, otherwise feels well. Pain better following chest tube removal yesterday
Objective Data
-
PT 17.3 Sec (11.4-14.6) H 07/18/23 13:45
INR 1.43 07/18/23 13:45
APTT 27.8 Sec (23.4-35.0) 07/18/23 13:45
Vital Signs
Vital Signs
Temp Pulse Resp BP Pulse Ox
99.1 F 79 14 112/71 97
07/20/23 23:42 07/20/23 23:42 07/20/23 23:42 07/20/23 23:42 07/20/23 23:42
CT Intake/Output/Weight
07/20/23 07/20/23 07/21/23
06:59 18:59 06:59
Intake Total 120 / 1278.2 1190 / 1200 10 / 1200
Output Total 795 / 1340 15 / 315 300 / 315
Balance -675 / -61.8 1175 / 885 -290 / 885
SaO2: 97 (2L)
Physical Exam
-
General: Awake and AOx3
Cardiovascular: Regular rate & rhythm, No Murmurs, No Rub and No Gallop
Respiratory: Decreased Breath Sounds (at bases, otherwise clear)
Sternum: Stable
Incision: Clean, Dry, Intact and Dressing Intact
Extremities: Other (+trace edema)
Data Reviewed
-
Lab Results: Results Reviewed
Medications: Active Meds Reviewed
Chest X-Ray: Report Reviewed and Image Reviewed
ECG: Report Reviewed and Image Reviewed
--- NOTE | 2023-07-21 04:25 | PTCARENOTE ---
Pt reassessed. Pt SR on monitor. HR 70s. BP stable. Pt remains on 2 L NC. POX 96-99%. All surgical sites stable. Labs drawn and sent. Pt states pain is controlled at this time. Call forrester within reach.
[2023-07-21 04:28] LABS: Hematocrit 28.2 % (39.0-52.0); Hemoglobin 9.5 g/dL (13.0-18.0); Mean Corp Hgb Conc. 33.7 g/dL (33.0-37.0); Mean Corpuscular Hgb 29.7 pg (27.0-31.0); Mean Corpuscular Volume 88.1 fL (80.0-94.0); Platelet Count 161 10^3/uL (130-400); Red Cell Dist. Width 13.2 % (11.5-14.5); White Blood Cell Count 10.4 10^3/uL (4.8-10.8)
[2023-07-21 04:42] LABS: Blood Urea Nitrogen 29 mg/dl (9-20); Calcium 8.4 mg/dl (8.4-10.2); Carbon Dioxide 30 mmol/L (22-30); Chloride 101 mmol/L (98-107); Estimated Creatinine Clearance 91 ml/min; Glucose 100 mg/dl (70-99); Potassium 4.2 mmol/L (3.5-5.1); Sodium 137 mmol/L (135-145); eGFR > 60.00
[2023-07-21] MEDS: TYLENOL 1000 MG PO ×3 (06:35→22:04)
[2023-07-21] MEDS: PLAVIX 75 MG PO (08:22)
[2023-07-21] MEDS: PROTONIX 40 MG PO (08:22)
[2023-07-21] MEDS: PACERONE 200 MG PO ×3 (08:23→22:04)
[2023-07-21] MEDS: LOPRESSOR 25 MG PO (08:23)
[2023-07-21] MEDS: HEPARIN 5000 UNITS SC ×2 (08:23→19:55)
[2023-07-21] MEDS: NEURONTIN 100 MG PO ×3 (08:23→22:03)
[2023-07-21] MEDS: MAGNESIUM OXIDE 500 MG PO ×2 (08:23→19:55)
[2023-07-21] MEDS: LOW STRENGTH ASPIRIN 81 MG PO (08:23)
[2023-07-21] MEDS: SENOKOT-S 1 TABLET PO ×2 (08:23→19:56)
[2023-07-21] MEDS: LIDOCAINE 4% PATCH TOPICAL (08:24)
[2023-07-21] MEDS: BACTROBAN 2% OINTMENT 1 APPLIC NASAL ×2 (08:24→19:54)
[2023-07-21] MEDS: MIRALAX 17 GRAMS PO (08:24)
--- NOTE | 2023-07-21 11:12 | W.PN.CARDCBS ---
Today's Communication / Plan
-
EKG with pericarditic changes.
Echo pending with preliminarily preserved EF
HR and bp remain stable.
Cont Metoprolol and Amiodarone
New to Lipitor 80 mg daily, LDL 115.
Cont DAPT with Aspirin and Plavix for 6-12 months post op with NSTEMI
Will need PT following right Achilles repair 07/14/2023 and then cardiac rehab thereafter
Discussed with nursing.
Impression / Plan
-
PCP: Dr. Tee Lipscomb
Primary Skatesman: none prior to admission
Impression:
-CAD
NSTEMI, peak Troponin 0.7
multivessel CAD by cath 07/16/23
s/p CABG BURDEN-Diag/LAD, MQEN-Tnvre-WS4-OM3, SVG-OM2, SVG-RCA 07/18/23
-Achilles rupture s/p repair 07/14/23
-Chest tightness post op Achilles repair
-Leukocytosis
-remote former smoker
-FH of CAD in father, multiple MIs
-Abnormal ECG, possible pericarditis
ECHO 07/15/23: EF 55-60, basal inferolateral hypokinesis suggested in some views, MAC
Plan:
EKG with pericarditic changes.
Echo pending with preliminarily preserved EF
HR and bp remain stable.
Cont Metoprolol and Amiodarone
New to Lipitor 80 mg daily, LDL 115.
Cont DAPT with Aspirin and Plavix for 6-12 months post op with NSTEMI
Will need PT following right Achilles repair 07/14/2023 and then cardiac rehab thereafter
Discussed with nursing.
HPI: Patient is a 62-year-old male without significant past medical history who underwent right Achilles repair surgery under general anesthesia at outpatient orthopedic surgical center 07/14/2023. Postoperatively patient was noted to be hypoxic,
and complained of some left-sided chest tightness which he states lasted approximately 5 to 10 minutes and was transferred to the ER for evaluation and admission. Also reports he coughed up some pink sputum while in recovery at surgical center.
Upon arrival to ER, he underwent chest CT which was negative for PE or dissection. Initial troponin 0.043 resulting in cardiology consultation. No present chest discomfort. Denies history of cardiac issues, CP or SOB as OP.
Progress Note - Skatesman
Subjective
Date of Service: July 21, 2023
Pt seen and examined. No complaints. No chest pain or shortness of breath.
Objective
Labs:
07/21/23 04:09
07/21/23 04:09
Labs
Hgb 9.5 g/dL (13.0-18.0) L 07/21/23 04:09
Hct 28.2 % (39.0-52.0) L 07/21/23 04:09
Plt Count 161 10^3/uL (130-400) 07/21/23 04:09
PT 17.3 Sec (11.4-14.6) H 07/18/23 13:45
INR 1.43 07/18/23 13:45
APTT 27.8 Sec (23.4-35.0) 07/18/23 13:45
Sodium 137 mmol/L (135-145) 07/21/23 04:09
Potassium 4.2 mmol/L (3.5-5.1) 07/21/23 04:09
BUN 29 mg/dl (9-20) H 07/21/23 04:09
Creatinine 0.9 mg/dL (0.7-1.3) 07/21/23 04:09
Glucose 100 mg/dl (70-99) H 07/21/23 04:09
Vital Signs and I&O:
Vital Signs
Temp Pulse Resp BP Pulse Ox
98.6 F 85 20 108/63 95
07/21/23 08:00 07/21/23 08:30 07/21/23 08:00 07/21/23 08:23 07/21/23 08:58
Vital Signs
Temp Pulse Resp BP Pulse Ox
98.6 F 85 20 108/63 95
07/21/23 08:00 07/21/23 08:30 07/21/23 08:00 07/21/23 08:23 07/21/23 08:58
Intake & Output
07/19/23 07/20/23 07/21/23 07/22/23
06:59 06:59 06:59 06:59
Intake Total 1199.4 / 1221.7 1278.2 / 1278.2 1300 / 1300 40 / 40
Output Total 1740 / 1780 1340 / 1340 615 / 615
Balance -540.6 / -558.3 -61.8 / -61.8 685 / 685 40 / 40
Physical Exam
Physical Exam
General: No acute distress, AAOX3
Neck: Negative JVD
Heart: Regular, Negative S3 positive S1/S2, Negative S4, No murmur
Lungs: CTA b/l, negative wheezes/rales/rhonchi
Abd: Positive BS, NT/ND, neg rebound/rigidity/guarding
Ext: Negative cyanosis/clubbing/edema
Neuro: nonfocal
--- NOTE | 2023-07-21 11:49 | CM ---
Chart reviewed. Patient independent of ADLS, recent R Achilles repair, lives with his and 2 teenage boys in a 3 [address], total of 10 KIT, using a knee scooter to ambulate. Plan is for the patient to return home with CT Transitional RN. CM to
follow
[2023-07-21] MEDS: LASIX 40 MG IV (12:52)
--- NOTE | 2023-07-21 12:56 | PTCARENOTE ---
Assessment unchanged; NSR on monitor and VSS; family at bedside.
[2023-07-21] MEDS: NSS IV (15:10)
--- NOTE | 2023-07-21 16:30 | PTCARENOTE ---
NSR on monitor and VSS; assessment unchanged.
--- NOTE | 2023-07-21 17:15 | PTCARENOTE ---
Addendum entered by Mackenzie Moura RN 07/21/23 17:52:
Another dose of Lopressor 5mg IV given for total of 10mg of Lopressor per CV ORTHOTICS TECHNICIAN order.
Original Note:
At 1705 A-fib on monitor VSS; positive diaphoresis and palpitation, CV ORTHOTICS TECHNICIAN updated, Lopressor 5mg IV given; family at bedside.
[2023-07-21] MEDS: LOPRESSOR 5 MG IV ×2 (17:21→17:47)
[2023-07-21] MEDS: LIPITOR 80 MG PO (17:21)
[2023-07-21] MEDS: CORDARONE 103 MG IV (19:01)
[2023-07-21] MEDS: CORDARONE 518 MG IV (19:04)
--- NOTE | 2023-07-21 19:08 | PTCARENOTE ---
Amiodarone bouls and drip started per CV EAR MUFF ASSEMBLER order.
[2023-07-21 19:14] LABS: Blood Urea Nitrogen 27 mg/dl (9-20); Calcium 8.1 mg/dl (8.4-10.2); Carbon Dioxide 27 mmol/L (22-30); Chloride 103 mmol/L (98-107); Estimated Creatinine Clearance 82 ml/min; Glucose 103 mg/dl (70-99); Magnesium 1.9 mg/dl (1.6-2.3); Potassium 3.7 mmol/L (3.5-5.1); Sodium 138 mmol/L (135-145); eGFR > 60.00
--- NOTE | 2023-07-21 21:00 | PTCARENOTE ---
Addendum entered by Lissy Pitts RN 07/22/23 00:51:
Amiodarone drip infusing per protocol.
Original Note:
Pt received from chhaya BOB. Walking rounds completed. Pt in A-fib at start of shift - converted to SR @2002. HR 80s. Temporary epicardial pacing wires intact, insulated, and readily accessible. BP 100s/70s. Palpable pulses. RA. POX 94%. Lung
sounds diminished at the bases. Deep breathing and IS encouraged. Occasional non-productive cough. +gas. Pt voiding in urinal w/o issue. Abdomen soft/nontender. +BS. CT dressing CDI. All surgical sites stable. Right lower leg dressing CDI. PIVx3 CDI
and flushes. See worklist for full VS, interventions, and nursing assessment. See MAR for medication administration. Call forrester within reach of patient.
[2023-07-21] MEDS: CALCIUM GLUCONATE 130 MG IV (21:18)
[2023-07-21] MEDS: KCL 20 MEQ PO (21:18)
[2023-07-21] MEDS: LOPRESSOR PO (21:18)
[2023-07-22] VITALS (12 sets, daily range): BP systolic 106–134; BP diastolic 66–81; PULSE 79–82; O2SAT 94; BMI 28.1
--- NOTE | 2023-07-22 00:45 | PTCARENOTE ---
Pt reassessed. SR on monitor. HR 80s. BP 106/66. Pt on 2 L NC. POX 96%. All surgical sites stable. Amiodarone drip running per protocol. No c/o pain at this time. Call forrester within reach.
[2023-07-22 04:33] LABS: Hematocrit 29.6 % (39.0-52.0); Mean Corp Hgb Conc. 33.8 g/dL (33.0-37.0); Mean Corpuscular Hgb 29.3 pg (27.0-31.0); Mean Corpuscular Volume 86.8 fL (80.0-94.0); Mean Platelet Volume 11.2 fL (7.4-10.4); Platelet Count 192 10^3/uL (130-400); Red Blood Cell Count 3.41 10^6/uL (4.70-6.10); Red Cell Dist. Width 13.1 % (11.5-14.5); White Blood Cell Count 8.5 10^3/uL (4.8-10.8)
--- NOTE | 2023-07-22 04:35 | PTCARENOTE ---
Previous assessment unchanged. Pt SR on monitor. HR 70-80s. BP stable. Pt on 2 L NC. POX 96-99%. All surgical sites stable. Amiodarone drip infusing per protocol. Amiodarone IV site CDI, no swelling noted, no c/o pain felt at infusion site. Labs
drawn and sent. Interventions and IV as documented in worklist. Call forrester within reach.
--- NOTE | 2023-07-22 04:36 | W.PN.CT ---
Today's Communication / Plan
-
Plan:
-No major issues overnight, hemodynamically and neurologically intact
-Postop episodes of brief sinus bradycardia and hypotension has resolved. Had 3hrs of a-fib with RVR yesterday 07/21/23, no further a-fib overnight. On Amiodarone gtt
-Postop EKG c/w acute pericarditis, pt denies excruciating pain, Cardiology following
-Cont. current meds (ASA, Plavix, Amiodarone, Lopressor )
-SC Heparin added given recent Achilles tear/reduced mobility
-F/U 2-view cxr
-Maintain temporary A/V wires (will cut before d/c home)
-Encourage use of IS
-OOB into chair/PT/OT f/u given recent Achilles tendon repair
-Home later today vs tomorrow (pt requesting additional day)
Assessment / Plan
-
Assessment:
-S/p Cabg x 7 (portillo - diag/lad, jignesh- ramus/om1/om3, ao-svg- om2, ao- svg- rca)/L EVH/RSF, by Dr. Macario, 07/18/23, pod#4
-Severe 3v CAD
-[place]
-NSTEMI (peak trop 0.701)
-LVEF 60-65% per intraop DELBERT
-HTN
-Prediabetes (hgb A1C 6.1)
-Class 1 obesity (BMI 30.2)
-S/P R Achilles Tendon Repair, 07/14/23
-Acute postop blood loss/anemia (stable without transfusion)
-Acute postop atelectasis
-Acute postop hypovolemia with subsequent hypervolemia
-Acute postop sinus bradycardia with associated hypotension (HR 39 bpm)
-Acute postop EKG c/w acute pericarditis
-Acute postop A-fib with RVR (converted on 5m g IV Lopressor x 2 and Amiodarone gtt, Lasted 3 hrs)
Discussed patient care with: Cardiology, Nursing, Respiratory Therapy, Pharmacy and Care Team
Subjective
Procedure
S/p Cabg x 7 (portillo - diag/lad, jignesh- ramus/om1/om3, ao-svg- om2, ao- svg- rca)/L EVH/RSF, by Dr. Macario, 07/18/23
-
Date of Service: July 22, 2023
Pt c/o mild incisional pain, otherwise feels well. Requesting another day before discharge
Objective Data
-
PT 17.3 Sec (11.4-14.6) H 07/18/23 13:45
INR 1.43 07/18/23 13:45
APTT 27.8 Sec (23.4-35.0) 07/18/23 13:45
Vital Signs
Vital Signs
Temp Pulse Resp BP Pulse Ox
98.8 F 71 16 117/74 97
07/22/23 04:13 07/22/23 04:13 07/22/23 04:13 07/22/23 04:13 07/22/23 04:13
CT Intake/Output/Weight
07/21/23 07/21/23 07/22/23
06:59 18:59 06:59
Intake Total 110 / 1300 40 / 256.6 216.6 / 256.6
Output Total 600 / 615 1125 / 1525 400 / 1525
Balance -490 / 685 -1085 / -1268.4 -183.4 / -1268.4
SaO2: 97 (RA)
Physical Exam
-
General: Awake, Oriented and AOx3
Cardiovascular: Regular rate & rhythm, No Murmurs, No Rub and No Gallop
Respiratory: Decreased Breath Sounds (at bases, otherwise clear)
Sternum: Stable
Incision: Clean, Dry, Intact and Dressing Intact
Extremities: No Edema
Data Reviewed
-
Lab Results: Results Reviewed
Medications: Active Meds Reviewed
Chest X-Ray: Report Reviewed and Image Reviewed
ECG: Report Reviewed and Image Reviewed
[2023-07-22 04:55] LABS: Blood Urea Nitrogen 28 mg/dl (9-20); Calcium 8.6 mg/dl (8.4-10.2); Carbon Dioxide 29 mmol/L (22-30); Chloride 103 mmol/L (98-107); Estimated Creatinine Clearance 82 ml/min; Glucose 114 mg/dl (70-99); Sodium 135 mmol/L (135-145); eGFR > 60.00
[2023-07-22] MEDS: TYLENOL PO (06:34)
--- NOTE | 2023-07-22 07:11 | W.PN.UPDATE ---
Update Note
Progress Note Update
comfortable in chair
vss
nsr
(afib resolved)
room air
labs ok
echo with preserved ef
s/p cabg
looks good
no more lasix needed
follow rhythm 24 hrs
home in am
--- NOTE | 2023-07-22 07:26 | ECGCV ---
<Jigna Morgan> notified of ECG critical value identified by electronic interpretation on ECG completed on <07/22/23>, at <0726>.
[2023-07-22] MEDS: DULCOLAX 10 MG RECTAL (08:00)
--- NOTE | 2023-07-22 08:30 | PTCARENOTE ---
pt received from previous RN, oriented, OOB in chair. SR on the monitor, HR 70-80s. A&V wires insulated. SBP 120s. trace L ankle edema, palpable pulses. RA, 94% POX. lungs diminished. IS encouraged. occasional cough. pt abdomen s/n, denies n/v. diet
tolerated well. voids. pt c/o constipation, received PRN Dulcolax suppository. + large BM. R foot immobilizer in place. surgical incisions approximated, ELAYNE. PIV x2. amiodarone gtt running per protocol. see worklist for VS, I&O, and assessment.
[2023-07-22] MEDS: SENOKOT-S 1 TABLET PO ×2 (09:24→20:29)
[2023-07-22] MEDS: LOPRESSOR 25 MG PO ×2 (09:24→20:29)
[2023-07-22] MEDS: MAGNESIUM OXIDE 500 MG PO ×2 (09:24→20:29)
[2023-07-22] MEDS: NEURONTIN 100 MG PO ×3 (09:24→22:21)
[2023-07-22] MEDS: PACERONE 200 MG PO ×3 (09:24→22:21)
[2023-07-22] MEDS: PROTONIX 40 MG PO (09:25)
[2023-07-22] MEDS: PLAVIX 75 MG PO (09:25)
[2023-07-22] MEDS: HEPARIN 5000 UNITS SC ×2 (09:25→20:28)
[2023-07-22] MEDS: LOW STRENGTH ASPIRIN 81 MG PO (09:25)
[2023-07-22] MEDS: LIDOCAINE 4% PATCH TOPICAL (09:26)
[2023-07-22] MEDS: BACTROBAN 2% OINTMENT 1 APPLIC NASAL (09:26)
--- NOTE | 2023-07-22 10:43 | W.PN.CARDCBS ---
Today's Communication / Plan
-
Back in sinus rhythm. Continue amiodarone metoprolol.
EKG with improved pericarditis. Echo with no pericardial effusion. LVEF preserved.
Continue aspirin and Plavix for now. If he has further episodes of A-fib we will consider anticoagulation.
Impression / Plan
-
PCP: Dr. Tee Lipscomb
Primary Director Of Accounts Payable: none prior to admission
Impression:
-CAD
NSTEMI, peak Troponin 0.7
multivessel CAD by cath 07/16/23
s/p CABG BURDEN-Diag/LAD, KLXP-Nwzna-OI3-OM3, SVG-OM2, SVG-RCA 07/18/23
-Achilles rupture s/p repair 07/14/23
-paroxysmal afib
-Chest tightness post op Achilles repair
-Leukocytosis
-remote former smoker
-FH of CAD in father, multiple MIs
-Abnormal ECG, possible pericarditis
ECHO 07/15/23: EF 55-60, basal inferolateral hypokinesis suggested in some views, MAC
Echo 07/21/23: EF 60-65%, mild LVH
Plan:
EKG with pericarditic changes. Echo stable with no pericardial effusion
Cont Metoprolol and Amiodarone. Had afib yesterday, back in sinus rhythm.
New to Lipitor 80 mg daily, LDL 115.
Cont DAPT with Aspirin and Plavix for 6-12 months post op with NSTEMI
Will need PT following right Achilles repair 07/14/2023 and then cardiac rehab thereafter
HPI: Patient is a 62-year-old male without significant past medical history who underwent right Achilles repair surgery under general anesthesia at outpatient orthopedic surgical center 07/14/2023. Postoperatively patient was noted to be hypoxic,
and complained of some left-sided chest tightness which he states lasted approximately 5 to 10 minutes and was transferred to the ER for evaluation and admission. Also reports he coughed up some pink sputum while in recovery at surgical center.
Upon arrival to ER, he underwent chest CT which was negative for PE or dissection. Initial troponin 0.043 resulting in cardiology consultation. No present chest discomfort. Denies history of cardiac issues, CP or SOB as OP.
Progress Note - Director Of Accounts Payable
Subjective
Date of Service: July 22, 2023
feels well. Had afib overnight. back in sinus rhythm
Objective
Labs:
07/22/23 04:12
07/22/23 04:12
Labs
Hgb 10.0 g/dL (13.0-18.0) L 07/22/23 04:12
Hct 29.6 % (39.0-52.0) L 07/22/23 04:12
Plt Count 192 10^3/uL (130-400) 07/22/23 04:12
PT 17.3 Sec (11.4-14.6) H 07/18/23 13:45
INR 1.43 07/18/23 13:45
APTT 27.8 Sec (23.4-35.0) 07/18/23 13:45
Sodium 135 mmol/L (135-145) 07/22/23 04:12
Potassium 4.0 mmol/L (3.5-5.1) 07/22/23 04:12
BUN 28 mg/dl (9-20) H 07/22/23 04:12
Creatinine 1.0 mg/dL (0.7-1.3) 07/22/23 04:12
Glucose 114 mg/dl (70-99) H 07/22/23 04:12
Vital Signs and I&O:
Vital Signs
Temp Pulse Resp BP Pulse Ox
98.7 F 80 18 118/77 94
07/22/23 08:00 07/22/23 10:16 07/22/23 08:00 07/22/23 10:16 07/22/23 10:16
Vital Signs
Temp Pulse Resp BP Pulse Ox
98.7 F 80 18 118/77 94
07/22/23 08:00 07/22/23 10:16 07/22/23 08:00 07/22/23 10:16 07/22/23 10:16
Intake & Output
07/20/23 07/21/23 07/22/23 07/23/23
06:59 06:59 06:59 06:59
Intake Total 1278.2 / 1278.2 1300 / 1300 256.6 / 256.6 16.7 / 16.7
Output Total 1340 / 1340 615 / 615 1525 / 1525
Balance -61.8 / -61.8 685 / 685 -1268.4 / -1268.4 16.7 / 16.7
Physical Exam
Physical Exam
GEN: No distress, awake, Ox3
HEENT: supple, anicteric, mmm
LUNGS: scatt rhonchi
CV: Reg, S1/S2, 1/6 syst LSB, no rub
ABD: soft, BS+, NT/ND
EXT: No edema
NEURO: Gross non-focal
SKIN: sternotomy
--- NOTE | 2023-07-22 12:30 | PTCARENOTE ---
pt VSS, no changes in assessment. pt OOB in chair. amiodarone gtt dc'd as ordered, PIV dc'd.
[2023-07-22] MEDS: NSS IV (13:12)
[2023-07-22] MEDS: TYLENOL 1000 MG PO ×2 (15:10→22:21)
--- NOTE | 2023-07-22 15:14 | PTCARENOTE ---
pt VSS, no changes in assessment. pt ambulated in hallway w/ rolling knee scooter. OOB in chair.
--- NOTE | 2023-07-22 15:22 | CM ---
Chart reviewed. Patient is independent of ADLS, lives with his and 2 teenage boys in a 3 [facility], total of 10 KIT, currently using a knee scooter 2/2 nonweight bearing for his R Achilles Surgery. Patient's has stage 4 cancer and is not sure
he will be able to have assistance at home, while his family is caring for his . Psyiatry consult place and referral sent to [facility]. CM to follow
[2023-07-22] MEDS: LIPITOR 80 MG PO (17:43)
--- NOTE | 2023-07-22 20:30 | PTCARENOTE ---
Assumed care of pt from chhaya RN. Pt AAOx3. Assisted out of the chair and positioned into bed. Pt non-weight bearing on R LE due to recent Achilles repair. SR on monitor. HR 60-70s. Temporary epicardial A/V wires insulated and readily accessible.
BP stable. Palpable pulses. Trace edema noted in left foot. Pt on RA. POX 97%. Lung sounds diminished. Deep breathing and IS encouraged. CT dressing CDI. Abdomen soft/nontender. +BS. Pt voiding yellow urine in urinal w/o issue. All surgical sites
stable. PIVx2 CDI and flushes. See worklist for full nursing assessment, interventions, and VS. Patient states pain is controlled at this time. Call forrester within reach.
[2023-07-23] VITALS (9 sets, daily range): BP systolic 104–124; BP diastolic 62–81; PULSE 73; BMI 28.1
--- NOTE | 2023-07-23 00:30 | PTCARENOTE ---
Previous assessment unchanged. SR on monitor. HR 60s. BP stable. Pt remains on RA. POX 96-97%. All surgical sites stable. Pt given ear-plugs and eye mask to aid with sleep. No c/o pain at this time. Call forrester within reach of patient.
--- NOTE | 2023-07-23 03:59 | PTCARENOTE ---
Previous assessment unchanged. SR on monitor. HR 60s. BP stable. RA. POX 96%. No c/o pain at this time. All surgical sites stable. Call forrester within reach. No labs ordered for pt - confirmed with CTPA.
[2023-07-23] MEDS: TYLENOL 1000 MG PO ×2 (06:16→22:20)
--- NOTE | 2023-07-23 06:56 | W.PN.CT ---
Today's Communication / Plan
-
Plan:
-No major issues overnight, hemodynamically and neurologically intact
-Postop episodes of brief sinus bradycardia and hypotension has resolved. Had 3hrs of a-fib with RVR yesterday 07/21/23, no further a-fib
-Postop EKG c/w acute pericarditis, pt denies excruciating pain, Cardiology following
-Cont. current meds (ASA, Plavix, Amiodarone, Lopressor )
-SC Heparin added given recent Achilles tear/reduced mobility
-Maintain temporary A/V wires (will cut before d/c home)
-Encourage use of IS
-OOB into chair/PT/OT f/u given recent Achilles tendon repair
-Physiatry to evaluate for [facility] placement
Assessment / Plan
-
Assessment:
-S/p Cabg x 7 (portillo - diag/lad, jignesh- ramus/om1/om3, ao-svg- om2, ao- svg- rca)/L EVH/RSF, by Dr. Macario, 07/18/23, pod#5
-Severe 3v CAD
-[place]
-NSTEMI (peak trop 0.701)
-LVEF 60-65% per intraop DELBERT
-HTN
-Prediabetes (hgb A1C 6.1)
-Class 1 obesity (BMI 30.2)
-S/P R Achilles Tendon Repair, 07/14/23
-Acute postop blood loss/anemia (stable without transfusion)
-Acute postop atelectasis
-Acute postop hypovolemia with subsequent hypervolemia
-Acute postop sinus bradycardia with associated hypotension (HR 39 bpm)
-Acute postop EKG c/w acute pericarditis
-Acute postop A-fib with RVR (converted on 5m g IV Lopressor x 2 and Amiodarone gtt, Lasted 3 hrs)
Discussed patient care with: Cardiology, Nursing, Respiratory Therapy, Pharmacy and Care Team
Subjective
Procedure
S/p Cabg x 7 (portillo - diag/lad, jignesh- ramus/om1/om3, ao-svg- om2, ao- svg- rca)/L EVH/RSF, by Dr. Macario, 07/18/23
-
Date of Service: July 23, 2023
Pt c/o mild incisional pain, otherwise feels well
Objective Data
-
Lab Results
07/22/23 04:12
07/22/23 04:12
PT 17.3 Sec (11.4-14.6) H 07/18/23 13:45
INR 1.43 07/18/23 13:45
APTT 27.8 Sec (23.4-35.0) 07/18/23 13:45
Vital Signs
Vital Signs
Temp Pulse Resp BP Pulse Ox
98.2 F 67 16 104/66 96
07/23/23 03:54 07/23/23 03:54 07/23/23 03:54 07/23/23 03:54 07/23/23 03:54
CT Intake/Output/Weight
07/22/23 07/22/23 07/23/23
06:59 18:59 06:59
Intake Total 216.6 / 256.6 83.3 / 83.3
Output Total 400 / 1525 400 / 400
Balance -183.4 / -1268.4 83.3 / -316.7 -400 / -316.7
SaO2: 96 (RA)
Physical Exam
-
General: Awake, Oriented and AOx3
Cardiovascular: Regular rate & rhythm, No Murmurs, No Rub and No Gallop
Respiratory: Decreased Breath Sounds
Sternum: Stable
Incision: Clean, Dry, Intact and Dressing Intact
Extremities: No Edema
Data Reviewed
-
Lab Results: Results Reviewed
Medications: Active Meds Reviewed
Chest X-Ray: Report Reviewed and Image Reviewed
ECG: Report Reviewed and Image Reviewed
[2023-07-23] MEDS: MAGNESIUM OXIDE 500 MG PO ×2 (07:44→19:41)
[2023-07-23] MEDS: PROTONIX 40 MG PO (07:44)
[2023-07-23] MEDS: LOW STRENGTH ASPIRIN 81 MG PO (07:44)
[2023-07-23] MEDS: PACERONE 200 MG PO ×3 (07:45→22:20)
[2023-07-23] MEDS: PLAVIX 75 MG PO (07:45)
[2023-07-23] MEDS: LOPRESSOR 25 MG PO ×2 (07:45→19:41)
[2023-07-23] MEDS: NEURONTIN 100 MG PO ×3 (07:45→22:22)
[2023-07-23] MEDS: HEPARIN 5000 UNITS SC ×2 (07:46→19:40)
[2023-07-23] MEDS: LIDOCAINE 4% PATCH TOPICAL (07:46)
[2023-07-23] MEDS: SENOKOT-S 1 TABLET PO ×2 (07:46→19:41)
--- NOTE | 2023-07-23 08:26 | PTCARENOTE ---
Rec'd pt this shift awake and alert sitting in chair. Pt NSR on selamor, RA, lungs clear. Pt with Rt foot dsg with yaw bandage intact. Pt non-weight bearing, using non weight bearing walker. See worklist for VS/I and O and assessments.
--- NOTE | 2023-07-23 10:27 | W.PN.UPDATE ---
Update Note
Progress Note Update
comfortable in chair
no complaints
vss
nsr
ra
s/p cabg
doing well
awaitng rehab placement
no sternal restrictions
--- NOTE | 2023-07-23 11:27 | CM ---
Chart reviewed. Patient is independent of ADLS, lives with his in a 3 [facility], total of 10 KIT, patient with recent R Achilles surgery and NWB ambulating with a knee scooter. Patient's has stage 4 Cancer and is receiving chemo. Patient has
2 teenage boys in school [employer] and his daughter is living here until 07/30 to help care for her mom. PT recommending HH or Skilled, patient is supervision level and does not have support during the day. Acute Rehab denied 2/2 not appropriate
with patient being supervision level. Referrals sent to [facility], [facility] and [facility]. Waiting on bed availability. Patient will need insurance authorization.
--- NOTE | 2023-07-23 13:59 | W.PN.CARDCBS ---
Addendum entered and electronically signed by Kim Obregon MD 07/23/23 15:25:
I saw and examined the patient.
The River Captain's note was reviewed and I agree with the note.
Comment: Overall doing well without complaints. No CP/SOB.
Vitals and labwork reviewed. Tele with SR. Afib for 3 hours on 07/21/23.
Exam notable for well appearing man, NAD, A+O x3, OOB in chair, right LE with yaw bandage, RR, normal S1 and S2, no preicardial rub, Abd soft, ND, NT, soft, +BS, warm ext.
Reccs:
1. DAPT for least one year in setting of ACS/NSTEMI, high intensity statin, BB as tolerated
2. Echo with preserved LV function, no pericardial effusion
3. Plan for discharge to rehab today for achilles tendon repair recovery.
Kim Obregon MD, [facility], [facility]
Original Note:
Today's Communication / Plan
-
SNF for rehab and then cardiac rehab
No chest pain and no pericardial effusion
Impression / Plan
-
PCP: Dr. Tee Lipscomb
Primary Bicycle Inspector: none prior to admission
Impression:
-CAD
NSTEMI, peak Troponin 0.7
multivessel CAD by cath 07/16/23
s/p CABG BURDEN-Diag/LAD, GJBP-Ojydg-CZ9-OM3, SVG-OM2, SVG-RCA 07/18/23
-Achilles rupture s/p repair 07/14/23
-paroxysmal afib
-Chest tightness post op Achilles repair
-Leukocytosis
-remote former smoker
-FH of CAD in father, multiple MIs
-Abnormal ECG, possible pericarditis
ECHO 07/15/23: EF 55-60, basal inferolateral hypokinesis suggested in some views, MAC
Echo 07/21/23: EF 60-65%, mild LVH, no WMA, no pericardial effusion
Plan:
-Patient with evidence of pericarditis on ECG. No pericardial effusion by echo 07/21/23. No chest pain.
-Tolerating Lopressor 25 mg BID. Patient was not taking any BP meds prior to admission
-LDL 115 and patient is new to atorvastatin 80 mg daily
-Aspirin and Plavix for 6-12 months post op with NSTEMI
-3 hours of Afib on 07/21/23.
-Patient is going to complete rehab stay at SNF following right Achilles repair 07/14/2023 and then cardiac rehab thereafter. Of note patient's has cancer and is receiving chemotherapy. Patient's daughter is caring for and teenage sons
while patient is in the hospital. [facility] was denied by insurance.
HPI: Patient is a 62-year-old male without significant past medical history who underwent right Achilles repair surgery under general anesthesia at outpatient orthopedic surgical center 07/14/2023. Postoperatively patient was noted to be hypoxic,
and complained of some left-sided chest tightness which he states lasted approximately 5 to 10 minutes and was transferred to the ER for evaluation and admission. Also reports he coughed up some pink sputum while in recovery at surgical center.
Upon arrival to ER, he underwent chest CT which was negative for PE or dissection. Initial troponin 0.043 resulting in cardiology consultation. No present chest discomfort. Denies history of cardiac issues, CP or SOB as OP.
Progress Note - Bicycle Inspector
Subjective
Date of Service: July 23, 2023
No chest pain
Objective
Labs:
07/22/23 04:12
07/22/23 04:12
Labs
Hgb 10.0 g/dL (13.0-18.0) L 07/22/23 04:12
Hct 29.6 % (39.0-52.0) L 07/22/23 04:12
Plt Count 192 10^3/uL (130-400) 07/22/23 04:12
PT 17.3 Sec (11.4-14.6) H 07/18/23 13:45
INR 1.43 07/18/23 13:45
APTT 27.8 Sec (23.4-35.0) 07/18/23 13:45
Sodium 135 mmol/L (135-145) 07/22/23 04:12
Potassium 4.0 mmol/L (3.5-5.1) 07/22/23 04:12
BUN 28 mg/dl (9-20) H 07/22/23 04:12
Creatinine 1.0 mg/dL (0.7-1.3) 07/22/23 04:12
Glucose 114 mg/dl (70-99) H 07/22/23 04:12
Vital Signs and I&O:
Vital Signs
Temp Pulse Resp BP Pulse Ox
98.0 F 72 18 110/77 97
07/23/23 10:28 07/23/23 12:34 07/23/23 12:34 07/23/23 07:45 07/23/23 12:34
Vital Signs
Temp Pulse Resp BP Pulse Ox
98.0 F 72 18 110/77 97
07/23/23 10:28 07/23/23 12:34 07/23/23 12:34 07/23/23 07:45 07/23/23 12:34
Intake & Output
07/21/23 07/22/23 07/23/23 07/24/23
06:59 06:59 06:59 06:59
Intake Total 1300 / 1300 256.6 / 256.6 83.3 / 83.3 1000 / 1000
Output Total 615 / 615 1525 / 1525 400 / 400
Balance 685 / 685 -1268.4 / -1268.4 -316.7 / -316.7 1000 / 1000
Physical Exam
Physical Exam
GEN: AAOx3
HEENT: MMM
LUNGS: No audible wheeze
CV: Reg, no rub
ABD: ND
EXT: No edema B/L
NEURO: Gross non-focal
SKIN: No rash
[2023-07-23] MEDS: NSS IV (15:11)
[2023-07-23] MEDS: TYLENOL PO (15:11)
[2023-07-23] MEDS: LIPITOR 80 MG PO (18:10)
--- NOTE | 2023-07-23 19:43 | PTCARENOTE ---
Patient received from dayshift nurse. Patient is alert and oriented x4, pleasant. Denies pain/discomfort. NSR. HR 80s-90s. Audible heart tones. BP 116/81. Weakly palpable bilateral radial pulses and L dorsalis pedal pulses. R popliteal pulse is
palpable. Unable to assess RLE for edema - covered by yaw bandage. PIV x2 maintained. RA. Oxygen saturation 96%. Upon auscultation, lung sounds diminished at the bases. Abdomen round. Per patient, had a BM today and yesterday. Passing gas, per
patient. Voids in urinal or in the BR. Assist x1 with scooter r/t nonweightbearing RLE (s/p Achilles tendon repair). Sternal incision is approximated with surgical adhesive and open to air. L groin puncture site is approximated with surgical
adhesive and open to air. L knee incisions x4 are approximated with surgical adhesive and open to air. RLE yaw bandage is intact from post-op Achilles tendon repair (original post-op dressing). Awaiting rehab placement. Will continue to monitor.
[2023-07-23] MEDS: FLEXERIL 5 MG PO (22:20)
--- NOTE | 2023-07-23 23:19 | PTCARENOTE ---
Vital signs stable. NSR. HR 70s. BP 124/77. RA. Oxygen saturation 96%. A&V wires insulated. Patient assisted back to bed w/ 1 assist. Patient c/o sternal incision pain, administered PRN and scheduled pain medications as ordered. Urinal at bedside.
Call forrester within reach.
[2023-07-24] VITALS (8 sets, daily range): BP systolic 109–124; BP diastolic 67–75; PULSE 78; BMI 28.3
--- NOTE | 2023-07-24 02:50 | W.PN.CT ---
Today's Communication / Plan
-
-pod #6
-no issues overnight, uses scooter for mobility
-continue current meds (ASA, Plavix, Lipitor, Lopressor, Amio, sq Heparin for DVT prophylaxis
-weaned off O2 - pOx96% on RA
-encourage IS, OOB
-continue PT/OT
-appreciate everyone's input
-waiting for insurance approval and SNF bed
Assessment / Plan
-
Assessment:
-S/p Cabg x 7 (portillo - diag/lad, jignesh- ramus/om1/om3, ao-svg- om2, ao- svg- rca)/L EVH/RSF, by Dr. Macario, 07/18/23, pod#6
-Severe 3v CAD
-[place]
-NSTEMI (peak trop 0.701)
-LVEF 60-65% per intraop DELBERT
-HTN
-Prediabetes (hgb A1C 6.1)
-Class 1 obesity (BMI 30.2)
-S/P R Achilles Tendon Repair, 07/14/[address] Levy
-Acute postop blood loss/anemia (stable without transfusion)
-Acute postop atelectasis
-Acute postop hypovolemia with subsequent hypervolemia
-Acute postop sinus bradycardia with associated hypotension (HR 39 bpm)
-Acute postop EKG c/w acute pericarditis
-Acute postop A-fib with RVR (converted on 5m g IV Lopressor x 2 and Amiodarone gtt, Lasted 3 hrs)
Discussed patient care with: Nursing and Care Team
Subjective
Procedure
S/p Cabg x 7 (portillo - diag/lad, jignesh- ramus/om1/om3, ao-svg- om2, ao- svg- rca)/L EVH/RSF, by Dr. Macario, 07/18/23
-
Date of Service: July 24, 2023
Objective Data
-
Lab Results
07/22/23 04:12
07/22/23 04:12
PT 17.3 Sec (11.4-14.6) H 07/18/23 13:45
INR 1.43 07/18/23 13:45
APTT 27.8 Sec (23.4-35.0) 07/18/23 13:45
Vital Signs
Vital Signs
Temp Pulse Resp BP Pulse Ox
98.2 F 74 20 124/77 96
07/23/23 23:19 07/23/23 23:19 07/23/23 23:19 07/23/23 23:19 07/23/23 23:19
CT Intake/Output/Weight
07/23/23 07/23/23 07/24/23
06:59 18:59 06:59
Intake Total 1499
Output Total 400 / 400
Balance -400 / -316.7 1499
SaO2: 96
Physical Exam
-
General: Awake and AOx3
Cardiovascular: Regular rate & rhythm, No Murmurs and No Rub
Respiratory: Decreased Breath Sounds (at bases)
Sternum: Stable
Incision: Clean, Dry and Intact
Extremities: Edema +1 (LLE. RLE with dressing post ortho surgery) and Other (R )
Abdomen: soft, nontender, nondistended, + bowel sounds
Data Reviewed
-
Lab Results: Results Reviewed
Medications: Active Meds Reviewed
Chest X-Ray: Report Reviewed and Image Reviewed
ECG: Report Reviewed and Image Reviewed
--- NOTE | 2023-07-24 03:08 | PTCARENOTE ---
Vital signs stable. Patient asleep but woke up chilly - an extra warm blanket applied. NSR. HR 70s. BP 112/75. RA. Oxygen saturation 95%. Patient went back to sleep. Will weigh patient and get him ready for the day in a couple hours.
[2023-07-24] MEDS: TYLENOL 1000 MG PO (06:26)
[2023-07-24] MEDS: PLAVIX 75 MG PO (08:31)
[2023-07-24] MEDS: LIDOCAINE 4% PATCH TOPICAL (08:31)
[2023-07-24] MEDS: LOW STRENGTH ASPIRIN 81 MG PO (08:31)
[2023-07-24] MEDS: LOPRESSOR 25 MG PO ×2 (08:31→20:42)
[2023-07-24] MEDS: HEPARIN 5000 UNITS SC ×2 (08:31→20:43)
[2023-07-24] MEDS: PACERONE 200 MG PO ×3 (08:31→20:43)
[2023-07-24] MEDS: NEURONTIN 100 MG PO ×3 (08:31→20:45)
[2023-07-24] MEDS: PROTONIX 40 MG PO (08:32)
[2023-07-24] MEDS: SENOKOT-S PO (08:32)
[2023-07-24] MEDS: MAGNESIUM OXIDE 500 MG PO ×2 (08:32→20:42)
[2023-07-24] MEDS: NSS IV (08:32)
--- NOTE | 2023-07-24 09:17 | PTCARENOTE ---
assumed care of pt from previous shift RN, sinus rhythm on tele, VSS, + peripheral pulses, trace edema. Post dressing to right lower extremity awaiting ortho input regarding would care. PIV x2 flush easily. plan of care reviewed w the pt and
questions encouraged.
--- NOTE | 2023-07-24 10:35 | W.PN.CARDCBS ---
Today's Communication / Plan
-
Supportive postoperative care
Outpatient cardiac follow-up to be arranged
Anticipate discharge to rehab today pending approval
Impression / Plan
-
PCP: Dr. Tee Lipscomb
Primary Vice Squad Police Officer: none prior to admission
Impression:
-CAD
NSTEMI, peak Troponin 0.7
multivessel CAD by cath 07/16/23
s/p CABG BURDEN-Diag/LAD, LNBB-Vbdix-RY6-OM3, SVG-OM2, SVG-RCA 07/18/23
-Achilles rupture s/p repair 07/14/23
-paroxysmal afib
-Chest tightness post op Achilles repair
-Leukocytosis
-remote former smoker
-FH of CAD in father, multiple MIs
-Abnormal ECG, possible pericarditis
ECHO 07/15/23: EF 55-60, basal inferolateral hypokinesis suggested in some views, MAC
Echo 07/21/23: EF 60-65%, mild LVH, no WMA, no pericardial effusion
Plan:
-S/p Cabg x 7 (burden - diag/lad, jignesh- ramus/om1/om3, ao-svg- om2, ao- svg- rca)/L EVH/RSF, by Dr. Macario, 07/18/23, pod#6 for Severe 3v CAD/NSTEMI (peak trop 0.701)
-Doing well postop; hemodynamically stable
-LVEF 60-65% per intraop DELBERT
-Patient with evidence of pericarditis on ECG. No pericardial effusion by echo 07/21/23. No chest pain.
-Tolerating Lopressor 25 mg BID. Patient was not taking any BP meds prior to admission
-LDL 115 and patient is new to atorvastatin 80 mg daily. Repeat lipid profile in 8 to 12 weeks. Goal LDL less than 55 mg/dL
-Aspirin and Plavix for 6-12 months post op with NSTEMI
-3 hours of Afib on 07/21/23; currently in sinus rhythm
-Stable from a cardiovascular standpoint for discharge to rehab today as per CT surgery plan
-Outpatient cardiac follow-up to be arranged
HPI: Patient is a 62-year-old male without significant past medical history who underwent right Achilles repair surgery under general anesthesia at outpatient orthopedic surgical center 07/14/2023. Postoperatively patient was noted to be hypoxic,
and complained of some left-sided chest tightness which he states lasted approximately 5 to 10 minutes and was transferred to the ER for evaluation and admission. Also reports he coughed up some pink sputum while in recovery at surgical center.
Upon arrival to ER, he underwent chest CT which was negative for PE or dissection. Initial troponin 0.043 resulting in cardiology consultation. No present chest discomfort. Denies history of cardiac issues, CP or SOB as OP.
Progress Note - Vice [employer] Police Officer
Subjective
Date of Service: July 24, 2023
Seen and examined. Out of bed to chair and feeling well. Anticipates discharge to rehab today
Objective
Labs:
07/22/23 04:12
07/22/23 04:12
Labs
Hgb 10.0 g/dL (13.0-18.0) L 07/22/23 04:12
Hct 29.6 % (39.0-52.0) L 07/22/23 04:12
Plt Count 192 10^3/uL (130-400) 07/22/23 04:12
PT 17.3 Sec (11.4-14.6) H 07/18/23 13:45
INR 1.43 07/18/23 13:45
APTT 27.8 Sec (23.4-35.0) 07/18/23 13:45
Sodium 135 mmol/L (135-145) 07/22/23 04:12
Potassium 4.0 mmol/L (3.5-5.1) 07/22/23 04:12
BUN 28 mg/dl (9-20) H 07/22/23 04:12
Creatinine 1.0 mg/dL (0.7-1.3) 07/22/23 04:12
Glucose 114 mg/dl (70-99) H 07/22/23 04:12
Vital Signs and I&O:
Vital Signs
Temp Pulse Resp BP Pulse Ox
98.2 F 81 18 109/70 96
07/24/23 08:27 07/24/23 09:00 07/24/23 08:27 07/24/23 08:27 07/24/23 09:32
Vital Signs
Temp Pulse Resp BP Pulse Ox
98.2 F 81 18 109/70 96
07/24/23 08:27 07/24/23 09:00 07/24/23 08:27 07/24/23 08:27 07/24/23 09:32
Intake & Output
07/22/23 07/23/23 07/24/23 07/25/23
06:59 06:59 06:59 06:59
Intake Total 256.6 / 256.6 83.3 / 83.3 2100 / 2100 50 / 50
Output Total 1525 / 1525 400 / 400 300 / 300
Balance -1268.4 / -1268.4 -316.7 / -316.7 1800 / 1800 50 / 50
Physical Exam
Physical Exam
General: No acute distress, AAOX3
Neck: Negative JVD
Heart: Regular, positive S1/S2, no murmur. Midline incision intact.
Lungs: CTA b/l, negative wheezes/rales/rhonchi
Abd: Positive BS, NT/ND, neg rebound/rigidity/guarding
Ext: No edema left lower extremity. Right lower extremity in orthopedic boot following right Achilles tendon repair.
Neuro: nonfocal
--- NOTE | 2023-07-24 12:16 | PTCARENOTE ---
VSS, sinus rhythm on tele, awaiting discharge to rehab VS home.
--- NOTE | 2023-07-24 12:39 | CM ---
Chart reviewed. Patient is OOB sittiing in the chair. Patient is independent of ADLS, lives with his and 2 teenage boys in a 3 STH, total of 10 KIT, recently had a R Achilles Surgery and is now NWB using a knee scooter. Patient's has
stage 4 Cancer, receiving chemotherapy. Patient's daughter is here from the [facility] until July 30. Patient is standby and will not have anyone to help care for him at home, his sons are in school and the daughter will be taking his to
chemo. PT evaluation recommending SNF. Referral sent and accepted to [facility]. Authorization was started through [facility], Auth # [id number]. Awaiting approval. Plan is for the patient to go to SNF. CM to follow
[2023-07-24] MEDS: TYLENOL PO ×2 (15:36→23:35)
[2023-07-24] MEDS: LIPITOR 80 MG PO (15:36)
--- NOTE | 2023-07-24 16:10 | PTCARENOTE ---
Achilles dressing change completed by ortho.
--- NOTE | 2023-07-24 16:10 | W.PN.UPDATE ---
Update Note
Progress Note Update
Patient was seen and evaluated by orthopedic surgery this afternoon for dressing change. The patient is POD #10 (DOS: 07/14/2023) from right Achilles tendon repair performed by Dr. Levy. He reports that his symptoms are well controlled.
Physical examination of the right ankle reveals a healing horizontal incision with two smaller incisions about posterior ankle without any evidence for active drainage, erythema, warmth or ecchymosis. Active range of motion and strength testing were
deferred at today's encounter. Patient is able to wiggle his toes. Toes are pink and warm. Calf is soft and nontender. Sensation is intact to light touch. Capillary refills less than 2 seconds.
Sutures were removed and Steri-Strips were reapplied without complication. Incisions were meticulously sterilized with Betadine. Steri-Strips were then applied. He was then placed back into a well-padded posterior leg splint, plantarflexed. He
will remain strict nonweightbearing to his right lower extremity at this time with use of scooter for ambulatory assistance. Upon discharge from rehab, he will return to our office for clinical evaluation. All questions were answered.
--- NOTE | 2023-07-24 20:00 | PTCARENOTE ---
PT aaox4 w/o complaints of pain. NS on monitor VSS, RA and clear lung sounds. GI & wnl. all surgical sights CDI, IV's WNL. see woklist for detailed assessment
[2023-07-24] MEDS: SENOKOT-S 1 TABLET PO (20:43)
[2023-07-25] VITALS (8 sets, daily range): BP systolic 101–123; BP diastolic 68–77; BMI 28.5
--- NOTE | 2023-07-25 | PTCARENOTE ---
no change from previous assessment
--- NOTE | 2023-07-25 00:45 | W.PN.CT ---
Today's Communication / Plan
-
POD #7
- No issues overnight, uses scooter for mobility
- Remains NSR 70s
- Continue current meds (ASA, Plavix, Lipitor, Lopressor, Amio, sq Heparin for DVT prophylaxis)
- Encourage IS, OOB
- Continue PT/OT
- Sutures removed from Achilles tendon repair incision yesterday by ortho
- labs stable; DC daily labs
- Waiting for insurance approval and SNF placement; hopeful DC today
Assessment / Plan
-
Assessment:
-S/p Cabg x 7 (portillo - diag/lad, jignesh- ramus/om1/om3, ao-svg- om2, ao- svg- rca)/L EVH/RSF, by Dr. Macario, 07/18/23, pod#6
-Severe 3v CAD
-[place]
-NSTEMI (peak trop 0.701)
-LVEF 60-65% per intraop EDLBERT
-HTN
-Prediabetes (hgb A1C 6.1)
-Class 1 obesity (BMI 30.2)
-S/P R Achilles Tendon Repair, 07/14/[address] Levy
-Acute postop blood loss/anemia (stable without transfusion)
-Acute postop atelectasis
-Acute postop hypovolemia with subsequent hypervolemia
-Acute postop sinus bradycardia with associated hypotension (HR 39 bpm)
-Acute postop EKG c/w acute pericarditis
-Acute postop A-fib with RVR (converted on 5m g IV Lopressor x 2 and Amiodarone gtt, Lasted 3 hrs)
Subjective
Procedure
S/p Cabg x 7 (portillo - diag/lad, jignesh- ramus/om1/om3, ao-svg- om2, ao- svg- rca)/L EVH/RSF, by Dr. Macario, 07/18/23
-
Date of Service: July 25, 2023
Objective Data
-
Lab Results
Vital Signs
Vital Signs
Temp Pulse Resp BP Pulse Ox
98.2 F 73 16 124/71 96
07/25/23 00:28 07/25/23 00:00 07/25/23 00:28 07/24/23 20:57 07/24/23 19:43
CT Intake/Output/Weight
07/24/23 07/24/23 07/25/23
06:59 18:59 06:59
Intake Total 600 / 2100 50 / 50
Output Total 300 / 300
Balance 300 / 1800 50 / 50
SaO2: 96
--- NOTE | 2023-07-25 05:47 | PTCARENOTE ---
no change from previous assessment
[2023-07-25] MEDS: TYLENOL PO ×2 (08:11→11:36)
[2023-07-25] MEDS: HEPARIN 5000 UNITS SC (08:19)
[2023-07-25] MEDS: LOW STRENGTH ASPIRIN 81 MG PO (08:19)
[2023-07-25] MEDS: MAGNESIUM OXIDE 500 MG PO (08:19)
[2023-07-25] MEDS: PLAVIX 75 MG PO (08:19)
[2023-07-25] MEDS: PACERONE 200 MG PO (08:19)
[2023-07-25] MEDS: LOPRESSOR 25 MG PO (08:19)
[2023-07-25] MEDS: PROTONIX 40 MG PO (08:19)
[2023-07-25] MEDS: NEURONTIN 100 MG PO (08:19)
[2023-07-25] MEDS: SENOKOT-S PO (08:20)
[2023-07-25] MEDS: LIDOCAINE 4% PATCH TOPICAL (08:20)
[2023-07-25] MEDS: NSS IV (08:21)
--- NOTE | 2023-07-25 09:36 | W.DCSUMMARY ---
Discharge Summary
Discharge Data
Date of Admission: 07/16/23
Date of Discharge: 07/25/23
-
Pending Results: No
Hospital Course
Primary care physician: [facility]
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
Inpatient consultants: [facility]
Procedures:
1. CABG x 7
Primary Diagnosis:
1. NSTEMI
Secondary Diagnoses:
1. Hypertension
2. Right Achilles tendon rupture with repair on 07/13 (Dr. Levy)
3. Acute postop blood loss/anemia (stable without transfusion)
4. Acute postop pericarditis
5. Acute postop A-fib
HPI: 62 yr old male admitted via ED on directly from surgi-center due to low oxygen levels and c/o chest pain post-R Achilles tendon repair under general anesthesia and intubation.
Hospital course: Patient ruled in for a NSTEMI (Troponin max 0.7) and taken to the agricultural labor [facility] manager where multivessel disease was identified. On 07/17, patient underwent CABG x 7 with BURDEN to LAD and diagonal, saphenous vein graft to RCA, saphenous vein
graft to OM 2, FELIPE Y graft off BURDEN to ramus, OM1, and OM [address] Macario. Intraoperative DELBERT reported ejection fraction of 60-65%. Patient returned to CVICU on Levophed, insulin, and Precedex. Patient was extubated at 1800. Aspirin was
initiated. On postoperative day #1, Luna and mediastinal chest tube were removed. EKG with noted ST elevations was discussed with cardiology and determined to be consistent with pericarditis. Aspirin Plavix was continued. On postoperative day
#2, pleural chest tubes were removed. Beta-kathy was increased to 25 mg twice daily. Heparin subcutaneous was initiated for DVT prophylaxis due to nonweightbearing status from right Achilles tendon repair on 07/13. Patient diuresed over 1 L with
Lasix 40 mg on postoperative day #3. Patient did develop postoperative atrial fibrillation which was rate controlled with Lopressor. Amiodarone bolus and drip were initiated. Patient converted to sinus rhythm and maintained sinus rhythm for the
duration of hospital stay. Patient will continue on amiodarone 200 mg p.o. twice daily until seen by cardiology. Per orthopedic surgery, patient will need to continue nonweightbearing status for an additional 2 weeks. Patient will follow-up with
[facility] (Cheng Farrar) as patient did not have a fiber optic assembly worker prior to this hospitalization. Vital signs stable and ready for discharge to SNF
Home medication changes:
see below
Discharge Plan
-
Patient Disposition: Retirement/SNF
Discharge Diagnosis/Procedures: CAD/CABG
Condition: Fair
Diet: Low Cholesterol and 2 Gram Sodium
Activity: Do not bear weight R leg and No strenuous activity
Driving Restrictions: Not until seen by your Dr
Bathing Restrictions: OK to Shower
Other Services: Cardiac Rehab
Specialty Instructions: Weigh Daily- Call MD for wt gain/loss 3 lbs overnight/5 lbs in 1 week
Activity Restrictions/Additional Instructions:
Please call to make appointments for Phase 2 Cardiac Rehab (When PT/OT is no longer needed)
[facility]
[phone]
Referrals:
[facility] [Other] (FAX [phone])
Cheng Farrar DO [Active] - (assigned to your care after hospital discharge)
Shamar Macario MD [Active] - 08/18/23 9:45 am
Tee Lipscomb MD [Family Provider] - in four to six weeks (Please make an appointment in four to six weeks.)
Vel Levy DPM [Active] - (call for follow up appointment after Right Achilles tendon repair)
Jaki Oropeza PA-C [Specified Professional Personl] - 08/27/23 2:00 pm
Prescriptions:
New
atorvastatin 80 mg Tablet
80 mg PO QPM Qty: 0 1RF
clopidogrel 75 mg Tablet
75 mg PO DAILY Qty: 0 1RF
aspirin [Children's Aspirin] 81 mg Tablet,Chewable
81 mg PO DAILY Qty: 0 0RF
acetaminophen 325 mg Tablet
650 mg PO Q4HPRN PRN (Reason: mild pain,headache,temp >101F ) Qty: 0 0RF
pantoprazole 40 mg Tablet,Delayed Release (Dr/Ec)
40 mg PO DAILY Qty: 0 1RF
cyclobenzaprine 10 mg Tablet
5 mg PO Q8HPRN PRN (Reason: muscle spasm) Qty: 0 0RF
gabapentin 100 mg Capsule
100 mg PO TID Qty: 0 0RF
heparin (porcine) 5,000 unit/mL Solution
5,000 unit SC Q12 Qty: 0 0RF
metoprolol tartrate 25 mg Tablet
25 mg PO Q12 Qty: 0 0RF
amiodarone [Pacerone] 200 mg Tablet
200 mg PO BID Qty: 0 0RF
Continued
tramadol 50 mg Tablet
50 mg PO Q6H PRN (Reason: moderate pain) Qty: 0 0RF
Patient Comments:
07/15/23: filled #30 tramadol 50mg tablets on 07/11/23 at [facility] #[id number]
Discontinued
aspirin 325 mg Tablet
325 mg PO DAILY
Rx Instructions:
1 tab for 30 days
ibuprofen 600 mg Tablet
600 mg PO Q6H PRN (Reason: pain)
gabapentin 300 mg capsule
300 mg PO TID
Rx Instructions:
gabapentin 300mg TID x 5 days post 07/14/23 surgery then 300mg HS and once daily as needed for pain.
Discharge Orders:
Discharge Patient (As Directed); Ordered 07/25/23
Ordered By: Kandice Samuel
Care Plan Goals
Care Plan Goals:
Problem: Readiness for enhanced knowledge related to diagnosis and treatment plan
Goal: Understand your diagnosis and treatment plan needs, including medications if applicable.
Instructions: Know your diagnosis, underlying causes and treatment plan options, including medications if applicable. Consult with your health care team to learn about your diagnosis and treatment plan, including medications if applicable.
Discharge Date and Time
Print Language: GIBRALTARIAN
--- NOTE | 2023-07-25 10:05 | PTCARENOTE ---
assumed care of pt from previous shift RN, sinus rhythm on tele, VSS, + peripheral pulses, trace edema. Post dressing to right lower extremity intact. PIV x2 flush easily. plan of care reviewed w the pt and questions encouraged.
--- NOTE | 2023-07-25 13:14 | PTCARENOTE ---
pacing wires cut, assisted pt w soap and water bath then dressed for discharge. IV lines removed, follow up appointment cards given to pt.
--- NOTE | 2023-07-25 13:45 | PTCARENOTE ---
report given to Laura at [facility].
--- NOTE | 2023-07-25 17:02 | CM ---
Received a phone call that patient decided when he go to [facility] he no longer wanted to go to Rehab and he felt that he would get the best care at home. I notified [facility], ZEKE Woodson and CT Transitional RN. Kandice ALANIS sending
medications to patient's [facility]. I notified [facility] of the situation and to make them aware of the medications needing to be filled. I notified the patient that his medications were being sent over and if he had any problems or
questions to call the CT office and they would notify the person provisioning analyst. Giovanna CT Transitional RN to see the patient on Friday. Patient received his discharge instructions and is aware of what medications he still needs to take this evening.
--- NOTE | 2023-07-25 17:06 | W.PN.UPDATE ---
Update Note
Progress Note Update
Received notice from case hardener Omaira that patient went to SNF and decided he wanted to go home. Individual new med scripts submitted to pharmacy. marketing project manager alerted transition RNs about change in discharge disposition.
== END 2023-07-25 14:07 | DRG 233 ==
LOC: CVICU 12:29
PROVIDERS: Anesthesiology; Clinical Nurse Specialist Acute Care; Emergency Medicine; Internal Medicine Interventional Cardiology; Nurse Practitioner; Nurse Practitioner Adult Health; Physician Assistant; ADMITTING PHYSICIAN Hospitalist; ATTENDING PHYSICIAN Thoracic Surgery (Cardiothoracic Vascular Surgery); CONSULT PHYSICIAN Internal Medicine Critical Care Medicine; EMERGENCY PHYSICIAN Emergency Medicine; FAMILY PHYSICIAN Family Medicine; OTHER PHYSICIAN Internal Medicine Cardiovascular Disease; OTHER PHYSICIAN Student in an Organized Health Care Education/Training Program
PROC: 4A023N7 Measurement of Cardiac Sampling and Pressure, Left Heart, Percutaneous Approach (ICD-10-PCS; 2023-07-16)
PROC: B2151ZZ Fluoroscopy of Left Heart using Low Osmolar Contrast (ICD-10-PCS; 2023-07-16)
PROC: B2111ZZ Fluoroscopy of Multiple Coronary Arteries using Low Osmolar Contrast (ICD-10-PCS; 2023-07-16)
PROC: 021 Heart and Great Vessels, Bypass (ICD-10-PCS; 2023-07-18)
PROC: 5A1221Z Performance of Cardiac Output, Continuous (ICD-10-PCS; 2023-07-18)
PROC: 021109W Bypass Coronary Artery, Two Arteries from Aorta with Autologous Venous Tissue, Open Approach (ICD-10-PCS; 2023-07-18)
PROC: B24BZZ4 Ultrasonography of Heart with Aorta, Transesophageal (ICD-10-PCS; 2023-07-18)
PROC: 02110Z9 Bypass Coronary Artery, Two Arteries from Left Internal Mammary, Open Approach (ICD-10-PCS; 2023-07-18)
PROC: 06BQ4ZZ Excision of Left Saphenous Vein, Percutaneous Endoscopic Approach (ICD-10-PCS; 2023-07-18)
DX: I97.191 Other postprocedural cardiac functional disturbances following other surgery (principal); I21.4 Non-ST elevation (NSTEMI) myocardial infarction; I50.33 Acute on chronic diastolic (congestive) heart failure; J95.89 Other postprocedural complications and disorders of respiratory system, not elsewhere classified; J98.11 Atelectasis; D62 Acute posthemorrhagic anemia; I30.9 Acute pericarditis, unspecified; R09.02 Hypoxemia; I25.10 Atherosclerotic heart disease of native coronary artery without angina pectoris; Y83.4 Other reconstructive surgery as the cause of abnormal reaction of the patient, or of later complication, without mention of misadventure at the time of the procedure; I48.91 Unspecified atrial fibrillation; G89.29 Other chronic pain; M54.9 Dorsalgia, unspecified; R73.03 Prediabetes; I11.0 Hypertensive heart disease with heart failure; E66.9 Obesity, unspecified; E86.1 Hypovolemia; R00.1 Bradycardia, unspecified; I95.81 Postprocedural hypotension; S86.011D Strain of right Achilles tendon, subsequent encounter; X58.XXXD Exposure to other specified factors, subsequent encounter; Z68.30 Body mass index [BMI] 30.0-30.9, adult; Z79.82 Long term (current) use of aspirin; Z79.899 Other long term (current) drug therapy; Z82.49 Family history of ischemic heart disease and other diseases of the circulatory system; Z86.16 Personal history of COVID-19; Z87.891 Personal history of nicotine dependence
CPT/HCPCS: 93308; 71045; 71046; 71275; 80048; 80053; 80061; 81003; 81015; 82248; 82330; 82565; 82805; 82947; 82962; 83036; 83735; 84132; 84302; 84484; 84520; 85014; 85018; 85025; 85027; 85049; 85610; 85730; 86803; 86850; 86900; 86901; 86920; 93005; 93306; 93312; 93320; 93321; 93325; 93458; 93880; 94002; 97116; 97163; 97164; 97167; 97530; 97535; 99285; C1713; C1894; P9045; Q9967

== ENCOUNTER 2023-07-31 08:20 | Emergency (ER) | payer OTHER, SELFPAY ==
[2023-07-31 08:25] VITALS: BP 115/80
--- NOTE | 2023-07-31 09:09 | ED.GENMED ---
Addendum entered and electronically signed by Bell Houston PA-C 08/03/23 09:03:
pt urine culture pseudomonas +
was initially not treated but then saw urology and got rx for levaquin
pt has no complaints
Original Note:
History of Present Illness
General
Chief Complaint: Urinary Symptoms
Source: patient
Exam Limitations: none
Time Seen by Provider: 07/31/23 08:59
Travel History
Have you had any contact with someone who has COVID-19?: No
Do you have any symptoms of coronavirus? Fever > 100 degrees, chills, cough, shortness of breath, sore throat, loss of taste or smell, muscle aches, or headache?: No
History of Present Illness
History of Present Illness:
62-year-old male presents complaining of inability urinate since last evening. No prior difficulties urinating. He denies a fever. He notes full sensation of bladder. Of note, 2 weeks ago he had 7 vessel bypass surgery and prior to that he had
Achilles tendon repair. He denies chest pain or shortness of breath. He is on aspirin and Plavix. He denies any hematuria. No other complaints at this time
Past History
Past History
ED Past Medical History: None
ED Past Surgical History: Orthopedic and Tonsilectomy
Social History
Tobacco: Former smoker
Alcohol: Occasional
Drug: None
Personal:
Living: with family
Employment: Employed
Family History
Family History: Other
Phy Exam
Physical Exam
Physical Exam:
General: Well-appearing male no acute respiratory distress
HEENT: Normocephalic atraumatic
Abdomen soft but slightly distended in suprapubic region. No guarding rebound normal bowel sounds
Extremities: Right lower extremity in short leg posterior splint. Left lower extremity with healing surgical incisions from vein grafting
Course
Orders/Labs/Results
Orders:
Orders
07/31/23 10:04
Luna Placement- Treatment ONCE
Reason for insertion: Acute Retention
07/31/23 10:43
Urinalysis Reflex To Culture Urgent
Date Specimen was Collected: 07/31/23
Time Specimen was Collected: 10:41
Urine Microscopic Reflex Cult Urgent
Urine Culture Urgent
PENNY Source: U
Specimen Description:
Date Specimen was Collected: 07/31/23
Time Specimen was Collected: 10:41
Abnormal Lab Results
07/31/23
10:43
Urine Nitrite (Reflex) Positive A
(Negative)
Leukocyte Esterase Rfl Trace A
(Negative)
Vital Signs
Initial and Last Documented VS:
Initial Vital Signs
Temp Pulse Resp BP Pulse Ox
99.1 F 110 16 115/80 98
07/31/23 08:25 07/31/23 08:25 07/31/23 08:25 07/31/23 08:25 07/31/23 08:25
Last Documented Vital Signs
Temp Pulse Resp BP Pulse Ox
99.1 F 110 16 115/80 98
07/31/23 08:25 07/31/23 08:25 07/31/23 08:25 07/31/23 08:25 07/31/23 08:25
MDM/Problems Addressed
Differential Diagnosis Includes:
Difficulty voiding. Question possible acute urinary retention. Will check for hematuria. No fever. Patient will be checked with a bladder scan and if retaining a large amount of urine will place Luna catheter
*Critical Care Note
Total Time (30-74mins, 75-104mins- exclusive of procedures): Not Applicable
Update Note
Update Note:
Bedside ultrasound which demonstrated distended bladder. Luna catheter was placed for acute urinary retention and over 900 mL of urine was evacuated. No obvious sign of infection in the urinalysis. He is feeling much better. Will discharge home
with Luna catheter and instructions to follow-up with urology
ED Attending Note
-
Portions of this chart may have been created with voice recognition software.� Occasional wrong word or��sound alike� substitutions may have occurred due to the inherent limitations of voice recognition software.
Discharge Plan
Departure
Patient Disposition: Home (Routine Discharge)
Date of Disposition: 07/31/23
Time of Disposition: 11:30
Patient with high blood pressure during this ER visit?: No
Discharge Problem:
Acute urinary retention
Instructions: How to Care for Your Luna Catheter
Prescriptions:
No Action
aspirin [Children's Aspirin] 81 mg Tablet,Chewable
81 mg PO DAILY Qty: 0 0RF
acetaminophen 325 mg Tablet
650 mg PO Q4HPRN PRN (Reason: mild pain,headache,temp >101F ) Qty: 0 0RF
tramadol 50 mg Tablet
50 mg PO Q6H PRN (Reason: moderate pain) Qty: 0 0RF
Patient Comments:
07/15/23: filled #30 tramadol 50mg tablets on 07/11/23 at [facility] #[id number]
atorvastatin [Lipitor] 80 mg tablet
80 mg PO HS Qty: 30 0RF
clopidogrel [Plavix] 75 mg tablet
75 mg PO DAILY Qty: 30 1RF
Rx Instructions:
start /6
amiodarone 200 mg tablet
200 mg PO BID Qty: 60 1RF
gabapentin 100 mg capsule
100 mg PO TID Qty: 90 0RF
metoprolol tartrate 25 mg tablet
25 mg PO BID Qty: 60 0RF
pantoprazole [Protonix] 40 mg tablet,delayed release (DR/EC)
40 mg PO DAILY Qty: 30 0RF
cyclobenzaprine 5 mg tablet
5 mg PO TID PRN (Reason: muscle spasm) Qty: 20 0RF
Referrals:
Tee Lipscomb MD [Family Provider] -
Yahir Lawson MD [Active] -
Activity Restrictions/Additional Instructions:
Please follow-up with urology for further evaluation. Leave catheter in. Empty as needed. You should receive a call if your urine culture is positive
Interventions
Interventions:
*Risk Screen - Suicide Last Done: 07/31/23 11:22
*General Assessment Last Done: 07/31/23 11:22
*Neglect/Abuse Screening Last Done: 07/31/23 11:22
*ED COVID-19 Vaccine History Last Done: 07/31/23 08:25
ED-Male Genitourinary Assessment Last Done: 07/31/23 11:22
Discharge Date and Time
Print Language: DANISH
[2023-07-31 10:58] LABS: Urine Albumin Negative (Neg - Trace); Urine Bilirubin Negative (Negative); Urine Character Clear (Clear); Urine Color Yellow; Urine Glucose Negative (Negative); Urine Ketone Negative (Negative); Urine Leukocyte Trace (Negative); Urine Nitrite Positive (Negative); Urine Occult Blood Negative (Negative); Urine Specific Gravity 1.015 (<1.030); Urine Urobilinogen Negative (Neg - 1+)
[2023-07-31 11:22] LABS: Urine Hyaline Cast 0-2 /LPF (0-2); Urine Red Blood Cell 0-2 /HPF (0-2); Urine Squamous Cell 0-2 /LPF (Few)
--- NOTE | 2023-07-31 11:23 | EDRN ---
delay in note d/t patient care:
1015: This RN placed 16F Luna catheter d.t pt urinary retention. pt tolerated well. sterile procedure performed. pt with 850 output.
1030: pt switched to leg bag and educated on use of leg bag and continuous drainage bag for home use. pt demonstrated understanding. Urine sample sent.
1120: pt updated awaiting for urine results then plan for discharge.
== END 2023-07-31 11:41 | disposition home or self-care (01) ==
LOC: EMR 08:20
PROVIDERS: Physician Assistant; EMERGENCY PHYSICIAN Emergency Medicine; FAMILY PHYSICIAN Family Medicine
DX: R33.9 Retention of urine, unspecified (principal); R14.0 Abdominal distension (gaseous); Z87.891 Personal history of nicotine dependence; Z79.82 Long term (current) use of aspirin; Z98.890 Other specified postprocedural states
CPT/HCPCS: 99284; 51702; 51798; 81003; 81015; 87086; 87088; 87186